=== PATIENT | male | born 1935 | race Caucasian/White ===

== ENCOUNTER 2017-06-06 14:08 | Emergency (ER) | payer MEDICARE, SELFPAY ==
[2017-06-06 14:19] VITALS: BP 140/90; PULSE 72; RESP 18; TEMP 38.1; O2SAT 96; BMI 27.8
[2017-06-06 14:52] LABS: UTC Influenza A Antigen Positive (Negative); UTC Influenza B Antigen Negative (Negative)
--- NOTE | 2017-06-06 15:13 | HMH.EDUTC ---
[facility] [place] Disposition Clinical Impression: Influenza A Disposition: Home, Self-Care Condition on Discharge: Good Instructions: DI for Influenza -- Adult Additional Instructions: * Start Tamiflu today if you are going to take it. Discussed risks and possible benefits. * Lots of rest * Increase fluids, water, gatorade, powerade, pedialyte if /toddler/child * Monitor Temp. Tylenol every 4 hours as needed no more then 5 times a day or 4000mg in 24 hours and/or ibuprofen every 6 hours as needed no more then 3200mg in 24 hours (as long as your primary care doctor has told you that it is ok to take both) for fever/aches/pain. ER if fever no less than 101 despite tylenol and Ibuprofen * You (or your child) are contagious until no fever, aches, chills x 24 hours without medication for symptoms. Prescriptions: Oseltamivir Phosphate [Tamiflu 75mg Capsule] 75 mg PO BID #10 capsule Referrals: Arnulfo Helms MD [Primary Care Provider] - Time of Disposition: 15:22 Medical Decision Making Vital Signs: 06/06/17 14:19 Temperature 100.6 F H Temperature Source Temporal Artery Scan Pulse Rate [Right] 72 Respiratory Rate 18 Blood Pressure [Right Arm] 140/90 Blood Pressure Mean [Right Arm] 106 Blood Pressure Source [Right Arm] Automatic Cuff Blood Pressure Position [Right Arm] Sitting 02 Sat by Pulse Oximetry 96 Oxygen Delivery Method Room Air - Lab Data Lab results reviewed: Yes: I reviewed the patient's lab results. Lab Results 06/06/17 14:46: Influenza Type A Ag Positive A, Influenza Type B Ag Negative - Shai Inquiry Pt receiving controlled substance: No [facility] [place] HPI - General Stated complaint: aches cough Time Seen by Provider: 06/06/17 14:55 Mode of Arrival: Ambulatory Source of Information: Patient Limitations: No Limitations Description of Symptoms (Recalled from Triage Doc. by RN): COUGH, CONGESTION, ACHES HEENT Symptoms (Recalled from RN notes): Yes Resp Symptoms (Recalled from RN notes): No Skin Symptoms (Recalled from RN notes): No MS Symptoms (Recalled from RN notes): No Functional Status (Recalled from RN notes): N - History of Present Illness Provider Complaint: c/o bodyaches, chills, cough. Pt thinks cough 2-3 days but reports he was just fine and himself yesterday and suddenly didn't feel good today. Has had flu vaccine. No known sick contacts. Hx of COPD. Cough worse. Occasional SOA. Hx of pneumonia but and pt doesn't feel that this is pneumonia and declined a CXR. - Related Data Home Medications Medication Instructions Recorded Confirmed Aspirin [Aspirin 81mg chewable 81 mg PO DAILY 06/06/17 06/06/17 tab] Carvedilol [Carvedilol 25mg Tab] 25 mg PO DAILY 06/06/17 06/06/17 Furosemide [Lasix 40mg tab] 40 mg PO DAILY 06/06/17 06/06/17 Metformin HCl 1,000 mg PO BID 06/06/17 06/06/17 Warfarin Sodium 2.5 mg PO DAILY 06/06/17 06/06/17 glipiZIDE [Glipizide] 10 mg PO BID 06/06/17 06/06/17 Previous Rx's Medication Instructions Recorded Oseltamivir Phosphate [Tamiflu 75 mg PO BID #10 cap 06/06/17 75mg Capsule] Allergies Allergy/AdvReac Type Severity Reaction Status Date / Time No Known Allergies Allergy Verified 06/06/17 14:25 - Worker's Comp Is this a Worker's Comp case?: No H History I have reviewed the patient's past medical history: Yes Medical History: Reports:: Chronic Obstructive Pulmonary Disease (COPD), Coronary Artery Disease, Diabetes Mellitus Type 2, Hyperlipidemia, Hypertension, Myocardial Infarction Other Surgeries: Yes: Splenectomy, Other (CABGx3, neck surg) - *Social History Alcohol Intake: never - Psychiatric History Expresses thoughts of harming self/others: None Suicide Plan Description: No Plan ROS Obtained: Yes Systems reviewed as appropriate & no additional complaints - Constitutional Constitutional: Reports as per HPI, Reports anorexia (still eating but less, good liquid intake), Reports fatigue, Denies weakness
--- NOTE | 2017-06-06 15:16 | ED_ITS ---
[facility] [place] Disposition Clinical Impression: Influenza A Disposition: Home, Self-Care Condition on Discharge: Good Instructions: DI for Influenza -- Adult Additional Instructions: * Start Tamiflu today if you are going to take it. Discussed risks and possible benefits. * Lots of rest * Increase fluids, water, gatorade, powerade, pedialyte if /toddler/child * Monitor Temp. Tylenol every 4 hours as needed no more then 5 times a day or 4000mg in 24 hours and/or ibuprofen every 6 hours as needed no more then 3200mg in 24 hours (as long as your primary care doctor has told you that it is ok to take both) for fever/aches/pain. ER if fever no less than 101 despite tylenol and Ibuprofen * You (or your child) are contagious until no fever, aches, chills x 24 hours without medication for symptoms. Prescriptions: Oseltamivir Phosphate [Tamiflu 75mg Capsule] 75 mg PO BID #10 capsule Referrals: Arnulfo Helms MD [Primary Care Provider] - Time of Disposition: 15:22 Medical Decision Making Vital Signs: 06/06/17 14:19 Temperature 100.6 F H Temperature Source Temporal Artery Scan Pulse Rate [Right] 72 Respiratory Rate 18 Blood Pressure [Right Arm] 140/90 Blood Pressure Mean [Right Arm] 106 Blood Pressure Source [Right Arm] Automatic Cuff Blood Pressure Position [Right Arm] Sitting 02 Sat by Pulse Oximetry 96 Oxygen Delivery Method Room Air - Lab Data Lab results reviewed: Yes: I reviewed the patient's lab results. Lab Results 06/06/17 14:46: Influenza Type A Ag Positive A, Influenza Type B Ag Negative - Shai Inquiry Pt receiving controlled substance: No [facility] [place] HPI - General Stated complaint: aches cough Time Seen by Provider: 06/06/17 14:55 Mode of Arrival: Ambulatory Source of Information: Patient Limitations: No Limitations Description of Symptoms (Recalled from Triage Doc. by RN): COUGH, CONGESTION, ACHES HEENT Symptoms (Recalled from RN notes): Yes Resp Symptoms (Recalled from RN notes): No Skin Symptoms (Recalled from RN notes): No MS Symptoms (Recalled from RN notes): No Functional Status (Recalled from RN notes): N - History of Present Illness Provider Complaint: c/o bodyaches, chills, cough. Pt thinks cough 2-3 days but reports he was just fine and himself yesterday and suddenly didn't feel good today. Has had flu vaccine. No known sick contacts. Hx of COPD. Cough worse. Occasional SOA. Hx of pneumonia but and pt doesn't feel that this is pneumonia and declined a CXR. - Related Data Home Medications Medication Instructions Recorded Confirmed Aspirin [Aspirin 81mg chewable 81 mg PO DAILY 06/06/17 06/06/17 tab] Carvedilol [Carvedilol 25mg Tab] 25 mg PO DAILY 06/06/17 06/06/17 Furosemide [Lasix 40mg tab] 40 mg PO DAILY 06/06/17 06/06/17 Metformin HCl 1,000 mg PO BID 06/06/17 06/06/17 Warfarin Sodium 2.5 mg PO DAILY 06/06/17 06/06/17 glipiZIDE [Glipizide] 10 mg PO BID 06/06/17 06/06/17 Previous Rx's Medication Instructions Recorded Oseltamivir Phosphate [Tamiflu 75 mg PO BID #10 cap 06/06/17 75mg Capsule] Allergies Allergy/AdvReac Type Severity Reaction Status Date / Time No Known Allergies Allergy Verified 06/06/17 14:25 - Worker's Comp Is this a Worker's Comp case?: No [facility] History I have review
== END 2017-06-06 15:34 | disposition home or self-care (01) ==
PROVIDERS: Emergency Provider Nurse Practitioner Family; Family Provider Family Medicine; PCP Family Medicine
DX: J09.X2 Influenza due to identified novel influenza A virus with other respiratory manifestations (principal); J44.9 Chronic obstructive pulmonary disease, unspecified; I25.10 Atherosclerotic heart disease of native coronary artery without angina pectoris; E11.9 Type 2 diabetes mellitus without complications; I10 Essential (primary) hypertension; I25.2 Old myocardial infarction; Z95.1 Presence of aortocoronary bypass graft; Z79.01 Long term (current) use of anticoagulants; Z79.84 Long term (current) use of oral hypoglycemic drugs; Z79.82 Long term (current) use of aspirin; Z79.899 Other long term (current) drug therapy
CPT/HCPCS: 87804; 99202

== ENCOUNTER 2018-10-03 22:40 | Inpatient (IN) ==
--- NOTE | 2018-10-03 22:51 | Emergency Department Note ---
ED Disposition Clinical Impression: Acute respiratory failure with hypoxia, COPD exacerbation Congestive heart failure Qualifiers: Heart failure type: unspecified Heart failure chronicity: acute Qualified Code(s): I50.9 - Heart failure, unspecified Disposition: Admitted As Inpatient Condition on Discharge: Fair Referrals: Arnulfo Helms MD [Primary Care Provider] - - Critical Care Critical Care Time: Yes Attestation: On , the high probability of a clinically significant, sudden or life threateni ng deterioration of the following system(s) required my full and direct attention, intervention and personal management. The time I documented below is in addition to time spent performing reported procedures but includes the following listed in this critical care notation. Total Critical Care Time: 35 Vital system(s) involved:: Respiratory Failure My critical care processes included: Assessment & monitoring of V/S, Initial and Re-exams, Data Review/Interpretation, Coordinating Care, Medication Orders and management, Documentation Medical Decision Making - Shai Inquiry Pt receiving controlled substance: No Vital Signs: 10/03/18 22:52 10/03/18 23:00 10/03/18 23:38 Temperature 98.1 F Temperature Source Oral Pulse Rate 81 Pulse Rate [Right Radial] 91 H Respiratory Rate 34 H Blood Pressure [Right Arm] 180/119 H Blood Pressure Mean [Right Arm] 139 02 Sat by Pulse Oximetry 80 L 80 L Oxygen Delivery Method Room Air Nasal Cannula Oxygen Flow Rate (LPM) 2 - Lab Data Lab Results 10/03/18 22:57: Specimen Source R/r, O2 % 2, ABG pH 7.40, ABG pCO2 34.6 L, ABG pO2 52.1 L, ABG HCO3 20.7 L, ABG Total CO2 21.8 L, ABG O2 Saturation 86 L*, ABG Base Excess -4.2 L, Darrell Test Y 10/03/18 23:05: WBC 13.1 H, RBC 5.29, Hgb 15.1, Hct 46.4, MCV 87.8, MCH 28.5, MCHC 32.4, RDW 13.9, Plt Count 278, MPV 9.5, Neut % (Auto) 84.7 H, Lymph % (Auto) 6.7 L, [place] % (Auto) 4.5, Eos % (Auto) 3.7, Baso % (Auto) 0.3, Neut # (Auto) 11.1 H, Lymph # (Auto) 0.9, [place] # (Auto) 0.6, Eos # (Auto) 0.5 H, Baso # (Auto) 0.0 10/03/18 23:05: Sodium 142, Potassium 3.8, Chloride 103, Carbon Dioxide 29, Anion Gap 13.8, BUN 21 H, Creatinine 1.41 H, Estimated Creat Clear 49, Estimated GFR 48 L, Est GFR ( Amer) 58 L, Glucose 286 H, Calcium 8.8, Total Bilirubin 1.2 H, AST 23, ALT 29, Alkaline Phosphatase 62, Troponin I 0.02, Total Protein 7.2, Albumin 3.9, Globulin 3.3 H, Albumin/Globulin Ratio 1.2 10/03/18 23:05: B-Natriuretic Peptide 305 H 10/03/18 23:05: PT 22.1 H, INR 2.21 H 10/03/18 23:20: Lactate 1.8 Result diagrams: 10/03/18 23:05 10/03/18 23:05 Orders (Tests/Meds): ED MEDICATIONS Generic Name Dose Route Start Last Admin Trade Name Freq PRN Reason Stop Dose Admin Azithromycin 500 mg/ Sodium 250 mls @ 250 mls/hr 10/03/18 23:45 10/03/18 23:59 Chloride IV 10/17/18 23:44 250 mls/hr Q24H SHANA Administration Protocol Sodium Chloride 3 ml 10/03/18 23:13 Sodium Chloride 3% 15ml [facility] 11/02/18 23:12 ONCE PRN INDUCE SPUTUM COLLECTION Discontinued Medications Generic Name Dose Route Start Last Admin Trade Name Freq PRN Reason Stop Dose Admin Albuterol/Ipratropium 3 ml 10/03/18 23:23 10/03/18 23:37 Duoneb 3ml [facility] 10/03/18 23:24 3 ml ONCE ONE Administration Furosemide 80 mg 10/03/18 23:12 10/03/18 23:23 Lasix 40mg/4ml Vial IV 10/03/18 23:13 80 mg ONCE ONE Administration Methylprednisolone Sodium Succinate 125 mg 10/03/18 23:12 10/03/18 23:23 Solu-Medrol 125mg/2ml Vial IV 10/03/18 23:13 125 mg ONCE ONE Administration ORDERS Category Date Time Status XR chest portable Stat Exams 10/03/18 22:57 Taken Blood Culture Stat Micro 10/03/18 23:24 Received Sputum Culture & Gram Stain Stat Micro 10/03/18 23:13 Ordered ABG [Arterial Blood Gas] Stat RT 10/03/18 22:47 Ordered - Radiology Data #1 Image(s): Chest Image Reviewed: Yes I reviewed the patient's radiology image Increased interstitial markings. - ECG Data Tracing #1 EKG interpreted by Merritt Lucia MD: Rhythm: Atrial fibrillation Rate: 93 [place]: normal Ectopy: none Conduction: normal ST Segment Changes: none T Wave Changes: none Q Waves: none Poor R wave progression baseline artifact and wander present, but I consider the EKG adequate for accurate interpretation. - Physician Consults Physician Consulted: Cristofer Helms Time: 00:31 Reason -: Admission Comment/Response: Agrees to admit the patient to the hospital. We discussed the patient's clinical information, including history, exam, laboratory and radi ology results and ED course. Per hospital procedure, I will write temporary bridge inpatient orders on the patient. Specific orders requested by the admitting physician: Intravenous Lasix twice daily, recheck labs in the morning - Reevaluation(s) Time: 00:25 Reevaluation #1: Improved, laying almost supine and appears comfortable. General Adult HPI - General Stated complaint: SOA Time Seen by Provider: 10/03/18 23:08 - History of Present Illness HPI narrative: Shortness of breath that started a couple of hours ago. Associated with gurgling respirations. Slight anterior chest pain. Cough with small amounts of yellow sputum. No fever. Chronic rhinorrhea, no acute change. No leg swelling. Patient believes that this is his COPD. He thinks he has a nebulizer at home, uncertain of medications used via nebulizer. Says he only uses it as needed, not every day. Former smoker. He is not on oxygen at home. - Related Data Home Medications Medication Instructions Recorded Confirmed Aspirin [Aspirin 81mg chewable 81 mg PO DAILY 06/06/17 10/03/18 tab] Carvedilol [Carvedilol 25mg Tab] 25 mg PO DAILY 06/06/17 10/03/18 Furosemide [Lasix 40mg tab] 40 mg PO DAILY 06/06/17 10/03/18 Metformin HCl 1,000 mg PO BID 06/06/17 10/03/18 Warfarin Sodium 2.5 mg PO DAILY 06/06/17 10/03/18 glipiZIDE [Glipizide] 10 mg PO BID 06/06/17 10/03/18 Benazepril HCl 40 mg PO DAILY 10/03/18 10/03/18 Doxazosin Mesylate [Doxazosin 8mg 8 mg PO HS 10/03/18 10/03/18 Tab] Fluocinonide/Emollient Base 15 gm TP BID 10/03/18 10/03/18 [Fluocinonide-E 0.05% Cream] Multivitamin [Daily Multiple 1 each PO DAILY 10/03/18 10/03/18 Vitamin] Potassium Chloride [K-Tab ER 10 10 meq PO DAILY 10/03/18 10/03/18 mEq] Pravastatin Sodium [Pravachol 40mg 40 mg PO HS 10/03/18 10/03/18 Tablet] Allergies Allergy/AdvReac Type Severity Reaction Status Date / Time No Known Allergies Allergy Verified 10/03/18 22:57 [facility] History - Hepatitis A Screen Attestation statement:: This patient has been screened for Hepatitis A risk factors. I have reviewed the patient's past medical history: Yes Medical History: Reports:: Chronic Obstructive Pulmonary Disease (COPD), Coronary Artery Disease, Diabetes Mellitus Type 2, Hyperlipidemia, Hypertension, Myocardial Infarction Other Surgeries: Yes: Splenectomy, Other (CABGx3, neck surg) - Social History Alcohol Intake: never ROS Obtained: Yes All systems reviewed & no additional complaints - Constitutional Constitutional: Denies fever(s) - ENT Ears, Nose, Mouth, and Throat: Reports nasal discharge - Cardiovascular Cardiovascular: Reports chest pain, Denies leg edema - Respiratory Respiratory: Yes cough, Yes dyspnea - Gastrointestinal Gastrointestingal: Denies: vomiting Physical Exam - General General appearance: alert, in distress (Respiratory) - Head Head exam: atraumatic, normocephalic - Eye Eye exam: Present: normal appearance, EOMI - ENT ENT exam: Present: mucous membranes moist - Neck Neck exam: Present: normal inspection, trachea midline - Chest Chest inspection: Present: symmetric chest wall rise - Respiratory Respiratory exam: Present: accessory muscle use, other (Rattling, rales) - Cardiovascular Cardiovascular exam: Present: regular rate, irregular rhythm, normal heart sounds - Abdominal Exam Abdominal exam: Present: soft. Absent: distention, tenderness - Extremities Exam Extremities exam: Present: normal inspection. Absent: tenderness, pedal edema, calf tenderness - Neurological Exam Neurological exam: Present: alert, oriented X3 - Psychiatric Psychiatric exam: Present: normal affect, normal mood - Skin Skin exam: Present: warm, dry
[2018-10-03 22:58] LABS: ABG Base Excess -4.2 mmol/L (-2.4-2.3); ABG HCO3 20.7 mmhg (22.0-26.0); ABG Oxygen Saturation 86 % (90-100); ABG PCO2 34.6 mmhg (35.0-45.0); ABG PO2 52.1 mmhg (80-100); ABG TCO2 21.8 mmhg (23-27); Allen's Test Y; Oxygen 2 %
[2018-10-03 23:16] LABS: Basophils % 0.3 % (0.1-2.0); Eosinophils # 0.5 K/mm3 (0.0-0.4); Eosinophils % 3.7 % (0.1-12.0); Hematocrit 46.4 % (42.0-52.0); Hemoglobin 15.1 g/dL (14.1-18.0); Lymphocytes # 0.9 K/mm3 (0.7-4.5); Lymphocytes % 6.7 % (10-50); Mean Corpuscular HGB Conc 32.4 g/dL (31.8-35.4); Mean Corpuscular Hemoglobin 28.5 pg (27.0-31.2); Mean Corpuscular Volume 87.8 fl (80-94); Mean Platelet Volume 9.5 fl (7.4-10.4); Monocytes # 0.6 K/mm3 (0.1-1.0); Monocytes % 4.5 % (1.7-9.3); Neutrophils # 11.1 K/mm3 (1.8-7.8); Neutrophils % 84.7 % (37.0-80.0); Platelet Count 278 K/mm3 (142-424); Red Blood Count 5.29 M/mm3 (4.60-6.20); Red Cell Distribution Width 13.9 % (11.5-17.5); White Blood Count 13.1 K/mm3 (4.8-10.8)
[2018-10-03 23:24] LABS: INR 2.21 (0.9-1.1); Prothrombin Time 22.1 seconds (9.4-11.8)
[2018-10-03 23:30] LABS: Albumin Level 3.9 gm/dL (3.4-5.0); Albumin/Globulin Ratio 1.2 (1.1-1.8); Anion Gap 13.8 mEq/L (5-15); Bilirubin,Total 1.2 mg/dL (0.2-1.0); Calcium 8.8 mg/dL (8.5-10.1); Globulin 3.3 gm/dl (1.3-3.2); Potassium 3.8 mmoL/L (3.5-5.1); Total Protein,Serum 7.2 gm/dL (6.4-8.2)
[2018-10-04 07:02] LABS: Anion Gap 17.4 mEq/L (5-15); Calcium 8.3 mg/dL (8.5-10.1); Potassium 3.4 mmoL/L (3.5-5.1)
--- NOTE | 2018-10-04 08:13 | History & Physical Report ---
*Admission Date: 10/04/18 *Chief complaint: Severe dyspnea with hypoxia *History of present illness: 83-year-old white male with history of emphysema and congestive heart failure, follows with [facility] cardiology group in [place], who came to the emergency department with progressive shortness of air through the early evening hours on the day of admission, 10/03/2018. He denies missing medications or changes in his low-salt diet, but when he came to the emergency department was significantly fluid overloaded with dyspnea, hypoxia and mild respiratory acidosis. He felt it was from COPD, but elevated BNP levels and crackles on exam prompted treatment for CHF exacerbation with IV Lasix which improved his situation. Although he improved slightly he continued to require 4 L of nasal cannula oxygen flow to keep his oxygen saturations above 90%, and he was admitted for further observation, IV Lasix and diagnostic testing. [facility] History I have reviewed the patient's past medical history: Yes Medical History: Reports:: Chronic Obstructive Pulmonary Disease (COPD), Coronary Artery Disease, Diabetes Mellitus Type 2, Hyperlipidemia, Hypertension, Myocardial Infarction Denies:: Cancer, MRSA *Have you ever received a pneumonia vaccine?: Yes *Have you received a flu vaccine this season?: Yes Laterality Cases: Bilateral: Tonsillectomy Other Surgeries: Yes: Appendectomy, CABG, Cardiac Catheterization, Cardiac Surgery, Splenectomy, Other (CABGx3, neck surg) Amputation: No Fractures: Yes (HX OF BROKEN R ARM.) - *Social History Educational Level: Completed High School Smoking Status: Former smoker Tobacco Type: cigarettes # Packs/Day (cigarettes): 3 Alcohol Intake: never *Occupational Status:: retired *Travel in the last 8 weeks: None - Psychiatric History Expresses thoughts of harming self/others: None Suicide Plan Description: No Plan Family Hx:: Coronary Artery Disease, Diabetes, Heart Attack, Hyperlipidemia, Hypertension Review of Systems - Review of Systems Review of systems:: pertinent systems reviewed and negative unless documented below Cardiac: Positive for shortness of air, negative for chest pain or palpitations Respiratory: Positive for shortness of air with exertion. Positive for cough, negative for sputum production. GI: Negative : Negative Neurologic: Negative. Skin: Negative. Meds Home Medications Medication Instructions Recorded Confirmed Type Aspirin [Aspirin 81mg chewable 81 mg PO DAILY 06/06/17 10/03/18 History tab] Carvedilol [Carvedilol 25mg Tab] 25 mg PO DAILY 06/06/17 10/03/18 History Furosemide [Lasix 40mg tab] 40 mg PO DAILY 06/06/17 10/03/18 History Metformin HCl 1,000 mg PO BID 06/06/17 10/03/18 History Warfarin Sodium 2.5 mg PO DAILY 06/06/17 10/03/18 History glipiZIDE [Glipizide] 10 mg PO BID 06/06/17 10/03/18 History Benazepril HCl 40 mg PO DAILY 10/03/18 10/03/18 History Doxazosin Mesylate [Doxazosin 8mg 8 mg PO HS 10/03/18 10/03/18 History Tab] Fluocinonide/Emollient Base 15 gm TP BID 10/03/18 10/03/18 History [Fluocinonide-E 0.05% Cream] Multivitamin [Daily Multiple 1 each PO DAILY 10/03/18 10/03/18 History Vitamin] Potassium Chloride [K-Tab ER 10 10 meq PO DAILY 10/03/18 10/03/18 History mEq] Pravastatin Sodium [Pravachol 40mg 40 mg PO HS 10/03/18 10/03/18 History Tablet] Allergies Allergy/AdvReac Type Severity Reaction Status Date / Time No Known Allergies Allergy Verified 10/03/18 22:57 Exam Vital signs and Labs for Last 24 Hours: Temp Pulse Resp BP Pulse Ox 98.5 F 82 20 114/70 98 10/04/18 07:38 10/04/18 07:38 10/04/18 07:38 10/04/18 07:38 10/04/18 07:38 Laboratory Results - last 24 hr 10/03/18 22:57: Specimen Source R/r, O2 % 2, ABG pH 7.40, ABG pCO2 34.6 L, ABG p O2 52.1 L, ABG HCO3 20.7 L, ABG Total CO2 21.8 L, ABG O2 Saturation 86 L*, ABG Base Excess -4.2 L, Darrell Test Y 10/03/18 23:05: WBC 13.1 H, RBC 5.29, Hgb 15.1, Hct 46.4, MCV 87.8, MCH 28.5, MCHC 32.4, RDW 13.9, Plt Count 278, MPV 9.5, Neut % (Auto) 84.7 H, Lymph % (Auto) 6.7 L, [place] % (Auto) 4.5, Eos % (Auto) 3.7, Baso % (Auto) 0.3, Neut # (Auto) 11.1 H, Lymph # (Auto) 0.9, [place] # (Auto) 0.6, Eos # (Auto) 0.5 H, Baso # (Auto) 0.0 10/03/18 23:05: Sodium 142, Potassium 3.8, Chloride 103, Carbon Dioxide 29, Anion Gap 13.8, BUN 21 H, Creatinine 1.41 H, Estimated Creat Clear 49, Estimated GFR 48 L, Est GFR ( Amer) 58 L, Glucose 286 H, Calcium 8.8, Total Bilirubin 1.2 H, AST 23, ALT 29, Alkaline Phosphatase 62, Troponin I 0.02, Total Protein 7.2, Albumin 3.9, Globulin 3.3 H, Albumin/Globulin Ratio 1.2 10/03/18 23:05: B-Natriuretic Peptide 305 H 10/03/18 23:05: PT 22.1 H, INR 2.21 H 10/03/18 23:20: Lactate 1.8 10/04/18 03:00: Troponin I 0.10 H 10/04/18 06:19: Sodium 139, Potassium 3.4 L, Chloride 103, Carbon Dioxide 22 D, Anion Gap 17.4 H, BUN 22 H, Creatinine 1.43 H, Estimated Creat Clear 45, Estimated GFR 47 L, Est GFR ( Amer) 57 L, Glucose 361 H D, Calcium 8.3 L, Troponin I 0.13 H I & O for Last 24 hours: Intake & Output 10/01/18 10/02/18 10/03/18 10/04/18 11:59 11:59 11:59 11:59 Intake Total 730 / 730 Output Total 1595 / 1595 Balance -865 / -865 Weight 178 lb Microbiology Reports for the Last 24 Hours: Microbiology 10/04/18 06:21 Sputum - Expectorated Sputum Gram Stain - Final Narrative: Patient is pleasant, talkative, alert and oriented x3. States that he feels better than his presentation to the ER. Ate 100% of his breakfast. ENT exam clear. No JVD. Wearing 4 L nasal cannula oxygen. Lungs have crackles in both lung okee[place], slightly more on the right this morning, no wheezing. Heart rate irregular consistent with his prior diagnosis of atrial fibrillation. Trace ankle edema at the sock line. Otherwise no pitting. Abdomen soft and nontender. Neurologic exam intact. Assessment and Plan (1) Atrial fibrillation, chronic Current visit: Yes Status: Acute Category: Medical Code(s): I48.2 - Chronic atrial fibrillation Therapeutic with Coumadin. Continue close observation. Rate controlled. (2) Elevated troponin Current visit: Yes Status: Acute Category: Medical Code(s): R74.8 - Abnormal levels of other serum enzymes Initial troponin normal. Possibly elevated because of CHF strain. Check echocardiogram tomorrow morning. (3) Acute respiratory failure with hypoxia Current visit: Yes Status: Acute Category: Medical Code(s): J96.01 - Acute respiratory failure with hypoxia Improving. Continue IV Lasix and attempt to wean oxygen. (4) COPD exacerbation Current visit: Yes Status: Acute Category: Medical Code(s): J44.1 - Chronic obstructive pulmonary disease with (acute) exacerbation Does not seem to be the major component of his dyspnea. I will stop steroids given lack of wheezing. (5) Congestive heart failure Current visit: Yes Status: Acute Qualifiers: Heart failure type: unspecified Heart failure chronicity: acute Qualified Code(s): I50.9 - Heart failure, unspecified Category: Medical Code(s): I50.9 - Heart failure, unspecified Exacerbation improving with IV Lasix. Continue this, monitor labs carefully. Echocardiogram tomorrow morning. (6) Chronic renal insufficiency, stage II (mild) Current visit: Yes Status: Acute Category: Medical Code(s): N18.2 - Chronic kidney disease, stage 2 (mild) Creatinine elevation seems to be baseline, unchanged overnight, follow again tomorrow morning.
--- NOTE | 2018-10-04 11:53 | Pharmacy Consult Notes ---
[facility] Pharmacy VTE Monitoring - Patient Demographics Admission date: 10/04/18 Report Date: 10/04/18 Time: 11:53 Allergies/Adverse Reactions: Patient Allergies No Known Allergies Allergy (Verified 10/03/18 22:57) Height: 1.8 m Weight: 80.739 kg Patient Problems: Current Active Problems (Updated 10/04/18 @ 08:15 by Arnulfo Cleveland MD) Acute respiratory failure with hypoxia (Acute) COPD exacerbation (Acute) Congestive heart failure (Acute) Atrial fibrillation, chronic (Acute) Elevated troponin (Acute) Chronic renal insufficiency, stage II (mild) (Acute) - VTE Risk Labs: VTE Related Lab Results Hgb 15.1 g/dL (14.1-18.0) 10/03/18 23:05 Hct 46.4 % (42.0-52.0) 10/03/18 23:05 Plt Count 278 K/mm3 (142-424) 10/03/18 23:05 PT 22.1 seconds (9.4-11.8) H 10/03/18 23:05 INR 2.21 (0.9-1.1) H 10/03/18 23:05 BUN 22 mg/dL (7-18) H 10/04/18 06:19 Creatinine 1.43 mg/dL (0.70-1.30) H 10/04/18 06:19 Estimated Creat Clear 45 mL/min (50-200) 10/04/18 06:19 VTE Score: 5 VTE Risk Level: Low Risk - Prophylaxis VTE Prophylaxis Ordered?: Yes Types of VTE Prophylaxis: TEDS Knee High, Pharmacological Location of Applied Device: Bilateral Lower Extremeties Pharmacologic Type: Warfarin (INR=2.21)
[2018-10-05 06:43] LABS: Basophils % 0.1 % (0.1-2.0); Hematocrit 34.4 % (42.0-52.0); Hemoglobin 11.2 g/dL (14.1-18.0); Lymphocytes # 0.9 K/mm3 (0.7-4.5); Lymphocytes % 4.9 % (10-50); Mean Corpuscular HGB Conc 32.6 g/dL (31.8-35.4); Mean Corpuscular Hemoglobin 28.5 pg (27.0-31.2); Mean Corpuscular Volume 87.5 fl (80-94); Mean Platelet Volume 9.7 fl (7.4-10.4); Monocytes # 0.6 K/mm3 (0.1-1.0); Monocytes % 3.6 % (1.7-9.3); Neutrophils % 91.3 % (37.0-80.0); Platelet Count 206 K/mm3 (142-424); Red Blood Count 3.93 M/mm3 (4.60-6.20); Red Cell Distribution Width 14.2 % (11.5-17.5); White Blood Count 17.6 K/mm3 (4.8-10.8)
[2018-10-05 06:51] LABS: Anion Gap 13.9 mEq/L (5-15); Calcium 8.3 mg/dL (8.5-10.1)
[2018-10-05 07:20] LABS: Potassium 2.9 mmoL/L (3.5-5.1)
--- NOTE | 2018-10-05 07:35 | Progress Note ---
Internal Medicine - PN: Subj *Date: 10/05/18 *Time: 07:33 Interval history: Patient is awake and alert sitting up on the side of the bed this morning and denies any complaints and feels like he is back to his baseline. Nasal cannula is still in use. He has been weaned from 4 L/min down to 2 L/min of supplemental oxygen. He denies cough. Exam Vital signs and Labs for Last 24 Hours: Temp Pulse Resp BP Pulse Ox 98.5 F 82 18 121/61 94 L 10/05/18 04:00 10/05/18 05:54 10/05/18 04:00 10/05/18 04:00 10/05/18 05:54 Laboratory Results - last 24 hr 10/04/18 06:06: POC Glucose 342 H* 10/04/18 10:28: POC Glucose 477 H* 10/04/18 17:05: POC Glucose 328 H* 10/04/18 20:22: POC Glucose 314 H* 10/05/18 05:19: POC Glucose 261 H 10/05/18 06:09: WBC 17.6 H D, RBC 3.93 L D, Hgb 11.2 L, Hct 34.4 L, MCV 87.5, MCH 28.5, MCHC 32.6, RDW 14.2, Plt Count 206 D, MPV 9.7, Neut % (Auto) 91.3 H, Lymph % (Auto) 4.9 L, [place] % (Auto) 3.6, Eos % (Auto) 0.0 L, Baso % (Auto) 0.1, Neut # (Auto) 16.0 H, Lymph # (Auto) 0.9, [place] # (Auto) 0.6, Eos # (Auto) 0.0, Baso # (Auto) 0.0 10/05/18 06:09: Sodium 143, Potassium 2.9 L*, Chloride 106, Carbon Dioxide 26, Anion Gap 13.9, BUN 32 H D, Creatinine 1.55 H, Estimated Creat Clear 42, Estimated GFR 43 L, Est GFR ( Amer) 52 L, Glucose 249 H D, Calcium 8.3 L I & O for Last 24 hours: Intake & Output 10/02/18 10/03/18 10/04/18 10/05/18 11:59 11:59 11:59 11:59 Intake Total 730 / 730 730 / 730 Output Total 1945 / 1945 700 / 700 Balance -1215 / -1215 30 / 30 Weight 178 lb 179 lb 5 oz Microbiology Reports for the Last 24 Hours: Microbiology 10/04/18 06:21 Sputum - Expectorated Sputum Gram Stain - Final 10/04/18 06:21 Sputum - Expectorated Sputum Sputum Culture - Preliminary Narrative: He appears well. Lung exam reveals persistent crackles in the left lung base but not in the right. Heart has a irregularly irregular rate and rhythm. Extremities are without edema Assessment and Plan (1) Acute respiratory failure with hypoxia Current visit: Yes Status: Acute Category: Medical Code(s): J96.01 - Acute respiratory failure with hypoxia (2) Atrial fibrillation, chronic Current visit: Yes Status: Acute Category: Medical Code(s): I48.2 - Ch ronic atrial fibrillation (3) Elevated troponin Current visit: Yes Status: Acute Category: Medical Code(s): R74.8 - Abnormal levels of other serum enzymes (4) COPD exacerbation Current visit: Yes Status: Acute Category: Medical Code(s): J44.1 - Chronic obstructive pulmonary disease with (acute) exacerbation (5) Congestive heart failure Current visit: Yes Status: Acute Qualifiers: Heart failure type: unspecified Heart failure chronicity: acute Qualified Code(s): I50.9 - Heart failure, unspecified Category: Medical Code(s): I50.9 - Heart failure, unspecified (6) Chronic renal insufficiency, stage II (mild) Current visit: Yes Status: Acute Category: Medical Code(s): N18.2 - Chronic kidney disease, stage 2 (mild) - Assessment and plan all Dx Assessment and Plan for all problems:: Echocardiogram was performed this morning but I do not have the results of that yet. Potassium is decreased and patient will be given 40 mEq of potassium chloride this morning and reduce his Lasix dose to once daily. Oxygen has been removed this morning and a room air sat will be checked shortly. If patient is able to maintain O2 sats in the 90s on room air during the day could be dis charged this evening
[2018-10-05 08:13] LABS: Lymphocytes % 2 % (10-50); Monocytes % 7 % (2-9); Neutrophils % 58 % (42-76); Total Cells Counted 100
--- NOTE | 2018-10-05 19:01 | Cardiology Report ---
PROCEDURE: 2-D M-mode and color Doppler study INDICATIONS FOR THE TEST: Chest pain COPD+ Heart Murmur Tobacco SmokingEX Palpitations Fatigue Syncope Edema Hypertension+Diabetes Mellitus+ Rheumatic Fever SOB+CARMICHAEL Obesity Hyperlipidemia+ Family History HD Additional History CHF, CAD, [place] X 2, CABG, CHRONIC AF, STENTS PATIENT INFORMATION HEIGHT: 71 WEIGHT:178 GENDER: Male B/P:114/70 2-D/M-MODE INTERPRETATION: 2-D MEASUREMENTS OBSERVED VALUES IN CMS Right Ventricular Dimension (RVDd) 3.2 Interventricular Septum (Thickness)(IVsd) 1.5 Left Ventricular Internal Dimensions(LVIDd) 6.2 Left Ventricular Posterior Wall (Thickness)(LVPWd) 1.0 Aortic Root 3.2 Aortic Cusp Separation 1.9 Left Atrial Dimensions (LAD) 6.2 2D 1. Left atrium is moderately enlarged, left ventricle is mildly dilated, mild concentric left ventricular hypertrophy, visually estimated ejection fraction 40%, there is marked hypokinesis involving the inferior, inferior basal, and inferolateral wall. 2. The right atrium and right ventricle are mildly enlarged with normal contractility. 3. The aortic valve is thickened and calcified leaflet continue to display good mobility. 4. The mitral and tricuspid valve leaflets are minimally thickened. 5. The pulmonic valve is poorly visualized. 6. No significant pericardial effusion noted. DOPPLER INTERROGATION: Doppler interrogation of the aortic, mitral and tricuspid valvular presence of mild aortic, moderate mitral and mild tricuspid regurgitation, tricuspid regurgitation jet velocity is inadequate for calculation of the right ventricular systolic pressure, diastolic parameters are inconclusive. Inferior vena cava is not well visualized. CONCLUSION: 1. Biatrial enlargement, dilated left ventricle, mild concentric left ventricular hypertrophy, visually estimated ejection fraction 40% with multiple segmental wall motion abnormality described above, diastolic parameters are inconclusive. 2. Mild aortic, moderate mitral and mild tricuspid regurgitation 3. No significant pericardial effusion noted.
--- NOTE | 2018-10-06 07:15 | Discharge Summary ---
General - General Admission date:: 10/04/18 Discharge date: 10/06/18 HPI HPI: 83-year-old white male with history of emphysema and congestive heart failure, follows with [facility] cardiology group in [place], who came to the emergency department with progressive shortness of air through the early evening hours on the day of admission, 10/03/2018. He denies missing medications or changes in his low-salt diet, but when he came to the emergency department was significantly fluid overloaded with dyspnea, hypoxia and mild respiratory acidosis. He felt it was from COPD, but elevated BNP levels and crackles on exam prompted treatment for CHF exacerbation with IV Lasix which improved his situation. Although he improved slightly he continued to require 4 L of nasal cannula oxygen flow to keep his oxygen saturations above 90%, and he was admitted for further observation, IV Lasix and diagnostic testing. Hospital Course Hospital Course: Patient was admitted and aggressively diuresed with Lasix which she had excellent response to. A little more than 24 hours after admission and diuresis patient was able to be weaned from supplemental oxygen and maintain oxygen saturations in the mid to high 90s. Repeat chest x-ray the morning of admission was interpreted as bilateral pulmonary infiltrates. His lung exam did have persistent left medial rales posteriorly. Patient received azithromycin on admission and Rocephin was added on October 05. Sputum culture showed multiple organisms on Gram stain and at the time of this dictation is not finalized. Aerobic blood culture drawn on admission had no growth after 48 hours. Anaerobic culture appeared to be growing a gram-positive cocci. Patient will be continued on antibiotic at discharge for pneumonia although I suspect his blood culture is a contaminant as he has been free of signs of infection such as fevers or chills. Patient has chronic systolic CHF with an EF of 40% and after diuresing his acute CHF resolved. No medication changes were made. Objective Vital signs: Temp Pulse Resp BP Pulse Ox 98.3 F 71 18 133/79 97 10/06/18 04:00 10/06/18 06:14 10/06/18 04:00 10/06/18 04:00 10/06/18 04:00 Results Labs on day of discharge: Labs from last 24 hours 10/06/18 10/05/18 10/05/18 06:17 19:47 16:36 Total Counted Neutrophils % (Manual) Band Neutrophils % Lymphocytes % (Manual) Monocytes % (Manual) Platelet Estimate Jett Cells Schistocytes Sodium Potassium Chloride Carbon Dioxide Anion Gap BUN Creatinine Estimated Creat Clear Estimated GFR Est GFR ( Amer) Glucose POC Glucose 138 H 157 H 239 H Calcium 10/05/18 10/05/18 10/05/18 11:03 06:09 06:09 Total Counted 100 Neutrophils % (Manual) 58 Band Neutrophils % 33.0 H Lymphocytes % (Manual) 2 L Monocytes % (Manual) 7 Platelet Estimate Normal [place] Cells 1+ Schistocytes 1+ Sodium 143 Potassium 2.9 L* Chloride 106 Carbon Dioxide 26 Anion Gap 13.9 BUN 32 H D Creatinine 1.55 H Estimated Creat Clear 42 Estimated GFR 43 L Est GFR ( Amer) 52 L Glucose 249 H D POC Glucose 315 H* Calcium 8.3 L Preliminary micro results at discharge 10/03/18 23:24 Blood Culture - Preliminary Blood NO GROWTH AFTER 48 HOURS 10/03/18 23:24 Blood Culture - Preliminary Blood 10/04/18 06:21 Sputum Culture - Preliminary Sputum - Expectorated Sputum DS: Diagnosis - Discharge Diagnosis (1) Acute on chronic systolic congestive heart failure, NYHA class 2 Status: Acute (2) Left lower lobe pneumonia Status: Acute (3) Acute respiratory failure with hypoxia Status: Acute (4) Atrial fibrillation, chronic Status: Acute (5) Elevated troponin Status: Acute (6) COPD exacerbation Status: Acute (7) Congestive heart failure Status: Acute (8) Chronic renal insufficiency, stage II (mild) Status: Acute Discharge Plan - Patient Discharge Instructions ACTIVITY: Continue current activity DIET: continue same diet Patient Instructions: Chronic Obstructive Pulmonary Disease, Heart Failure, Cou kurt Vitamin K/ Diet, Coumadin Therapy Booklet - Follow up Plan Follow up with: Arnulfo Helms MD [Primary Care Provider] - 10/09/18 10:00 am Disposition: Home, Self-Long Term Medications: Home Medications Medication Instructions Recorded Confirmed Type Aspirin [Aspirin 81mg chewable 81 mg PO DAILY 06/06/17 10/03/18 History tab] Carvedilol [Carvedilol 25mg Tab] 25 mg PO DAILY 06/06/17 10/03/18 History Furosemide [Lasix 40mg tab] 40 mg PO DAILY 06/06/17 10/03/18 History Warfarin Sodium 2.[address] [facility] 06/06/17 10/04/18 History glipiZIDE [Glipizide] 10 mg PO BID 06/06/17 10/03/18 History Benazepril HCl 40 mg PO DAILY 10/03/18 10/03/18 History Doxazosin Mesylate [Doxazosin 8mg 8 mg PO HS 10/03/18 10/03/18 History Tab] Fluocinonide/Emollient Base 15 gm TP BID 10/03/18 10/03/18 History [Fluocinonide-E 0.05% Cream] Multivitamin [Daily Multiple 1 each PO DAILY 10/03/18 10/03/18 History Vitamin] Potassium Chloride [K-Tab ER 10 10 meq PO DAILY 10/03/18 10/03/18 History mEq] Pravastatin Sodium [Pravachol 40mg 40 mg PO HS 10/03/18 10/03/18 History Tablet] Metformin HCl 1,000 mg PO BID 10/04/18 10/04/18 History Warfarin Sodium 5 mg PO TU 10/04/18 10/04/18 History cefUROXime axetil [Ceftin 500mg 500 mg PO BID #20 tab 10/06/18 Rx Tab (GEQ)] Prescriptions/Medication Reconciliation: New cefUROXime axetil [Ceftin 500mg Tab (GEQ)] 500 mg PO BID #20 tab Continued Furosemide [Lasix 40mg tab] 40 mg PO DAILY Aspirin [Aspirin 81mg chewable tab] 81 mg PO DAILY Carvedilol [Carvedilol 25mg Tab] 25 mg PO DAILY Warfarin Sodium 2.5 mg PO [place] Potassium Chloride [K-Tab ER 10 mEq] 10 meq PO DAILY Pravastatin Sodium [Pravachol 40mg Tablet] 40 mg PO HS Multivitamin [Daily Multiple Vitamin] 1 each PO DAILY Fluocinonide/Emollient Base [Fluocinonide-E 0.05% Cream] 15 gm TP BID Doxazosin Mesylate [Doxazosin 8mg Tab] 8 mg PO HS Benazepril HCl 40 mg PO DAILY glipiZIDE [Glipizide] 10 mg PO BID Warfarin Sodium 5 mg PO TU Metformin HCl 1,000 mg PO BID
[2018-10-06 07:25] LABS: Basophils % 0.2 % (0.1-2.0); Eosinophils # 0.1 K/mm3 (0.0-0.4); Eosinophils % 0.3 % (0.1-12.0); Hematocrit 37.2 % (42.0-52.0); Lymphocytes # 1.5 K/mm3 (0.7-4.5); Mean Corpuscular HGB Conc 32.2 g/dL (31.8-35.4); Mean Corpuscular Hemoglobin 28.1 pg (27.0-31.2); Mean Corpuscular Volume 87.1 fl (80-94); Mean Platelet Volume 9.9 fl (7.4-10.4); Monocytes # 0.8 K/mm3 (0.1-1.0); Neutrophils # 13.9 K/mm3 (1.8-7.8); Neutrophils % 85.4 % (37.0-80.0); Platelet Count 208 K/mm3 (142-424); Red Blood Count 4.27 M/mm3 (4.60-6.20); Red Cell Distribution Width 14.1 % (11.5-17.5); White Blood Count 16.3 K/mm3 (4.8-10.8)
[2018-10-06 07:30] LABS: INR 1.64 (0.9-1.1); Prothrombin Time 16.7 seconds (9.4-11.8)
[2018-10-06 07:32] LABS: Anion Gap 12.7 mEq/L (5-15); Calcium 8.7 mg/dL (8.5-10.1); Potassium 3.7 mmoL/L (3.5-5.1)
[2018-10-06 08:25] LABS: Lymphocytes % 6 % (10-50); Monocytes % 12 % (2-9); Neutrophils % 81 % (42-76); RBC Morphology Normal; Total Cells Counted 100
== END 2018-10-06 09:09 | disposition home or self-care (01) | DRG 291 ==
LOC: ER 22:40 → 2ND 10-04 00:36
PROVIDERS: ADMIT Internal Medicine Adolescent Medicine; ATTEND Family Medicine
CPT/HCPCS: 36415; 71010; 71020; 71045; 71046; 80048; 80053; 82803; 82962; 83605; 83880; 84484; 85007; 85025; 85610; 87040; 87070; 87077; 87186; 87205; 93005; 93306; 94640; 94760; 94761; 96374; 96375; 99284; J0456

== ENCOUNTER 2019-01-03 06:58 | Observation (INO) ==
[2019-01-03 07:15] LABS: Basophils # 0.1 K/mm3 (0-0.2); Basophils % 0.8 % (0.1-2.0); Eosinophils # 1.1 K/mm3 (0.0-0.4); Eosinophils % 10.2 % (0.1-12.0); Hematocrit 37.5 % (42.0-52.0); Hemoglobin 13.1 g/dL (14.1-18.0); Lymphocytes # 1.8 K/mm3 (0.7-4.5); Lymphocytes % 16.4 % (10-50); Mean Corpuscular HGB Conc 34.8 g/dL (31.8-35.4); Mean Corpuscular Volume 87.4 fl (80-94); Monocytes # 0.8 K/mm3 (0.1-1.0); Monocytes % 7.3 % (1.7-9.3); Neutrophils % 65.3 % (37.0-80.0); Platelet Count 294 K/mm3 (142-424); Red Cell Distribution Width 14.3 % (11.5-17.5); White Blood Count 10.8 K/mm3 (4.8-10.8)
[2019-01-03 07:32] LABS: INR 1.98 (0.9-1.1); Prothrombin Time 19.9 seconds (9.4-11.8)
--- NOTE | 2019-01-03 07:35 | Emergency Department Note ---
ED Disposition Clinical Impression: Angina at rest, Atrial fibrillation, chronic Disposition: Admitted as Observation Condition on Discharge: Good Referrals: Arnulfo Helms MD [Primary Care Provider] - - Critical Care Critical Care Time: No Attestation: On 01/03/19, the high probability of a clinically significant, sudden or life threatening deterioration of the following system(s) required my full and direct attention, intervention and personal management. The time I documented below is in addition to time spent performing reported procedures but includes the following listed in this critical care notation. Medical Decision Making - Medical Records Medical records reviewed: Yes: I reviewed the patient's medical records. - Shai Inquiry Pt receiving controlled substance: No Vital Signs: 01/03/19 06:59 01/03/19 07:29 Temperature 97.7 F Temperature Source Oral Pulse Rate [Right] 69 61 Respiratory Rate 18 18 Blood Pressure [Right Arm] 151/77 H 121/64 Blood Pressure Mean [Right Arm] 101 83 Blood Pressure Source [Right Arm] Automatic Cuff Automatic Cuff Blood Pressure Position [Right Arm] Supine Sitting 02 Sat by Pulse Oximetry 97 95 Oxygen Delivery Method Room Air Room Air - Lab Data Lab results reviewed: Yes: I reviewed the patient's lab results. Lab Results 01/03/19 07:00: WBC 10.8, RBC 4.30 L, Hgb 13.1 L, Hct 37.5 L, MCV 87.4, MCH 30.4, MCHC 34.8, RDW 14.3, Plt Count 294, MPV 9.0, Neut % (Auto) 65.3, Lymph % (Auto) 16.4, [place] % (Auto) 7.3, Eos % (Auto) 10.2, Baso % (Auto) 0.8, Neut # (Auto) 7.0, Lymph # (Auto) 1.8, [place] # (Auto) 0.8, Eos # (Auto) 1.1 H, Baso # (Auto) 0.1 01/03/19 07:00: Sodium 146 H, Potassium 3.7, Chloride 107, Carbon Dioxide 28, Anion Gap 14.7, BUN 17, Creatinine 1.12, Estimated Creat Clear 61, Estimated GFR 63, Est GFR ( Amer) 76, Glucose 120 H, Calcium 8.8, Troponin I 0.03 01/03/19 07:00: PT 19.9 H, INR 1.98 H Result diagrams: 01/03/19 07:00 01/03/19 07:00 Orders (Tests/Meds): ED MEDICATIONS Discontinued Medications Generic Name Dose Route Start Last Admin Trade Name Josselyn PRN Reason Stop Dose Admin Aspirin 243 mg 01/03/19 07:05 01/03/19 07:18 Aspirin 81mg Chewable Tablet PO 01/03/19 07:06 243 mg ONCE ONE Administration Nitroglycerin 1 gm 01/03/19 07:05 01/03/19 07:18 Nitroglycerin 1 Inch Oint Udp TD 01/03/19 07:06 1 gm ONCE ONE Administration ORDERS Category Date Time Status XR chest 2V Stat Exams 01/03/19 07:05 Taken - Radiology Data #1 Image(s): Chest Image Reviewed: Yes I reviewed the patient's radiology image Preliminary Findings: Abnormal (chronic changes ) - ECG Data Tracing #1 Arrhythmias present: afib Ischemic changes: non-specific ST-T wave changes ECG compared to prior tracings: there are no significant changes Chest Pain HPI - General Chief Complaint: Chest Pain Stated Complaint: Chest Pain Time Seen by Provider: 01/03/19 07:15 Mode of Arrival: Ambulatory Source of Information: Patient, Medical Record Limitations: No Limitations Description of Symptoms (Recalled from ER Triage Doc. by RN): Chest pain last night, pt took 2 Nitro [employer] relieved pain - History of Present Illness HPI narrative: pt with hx of heart dis had episode of chest heaviness this am and was relieved with ntg - has chronic a fib - MD complaint: chest pain indicative of cardiac Onset (ago): hour(s) Duration: now resolved Activity at onset: during rest Pain location: substernal Severity: moderate Quality: heaviness Relieving factors: nitroglycerin Risk Factors for CAD: Hypertension, Family Hx of CAD, Diabetes Treatments prior to or on arrival for Cardiac Chest Pain: nitroglycerin - CHANDRAKANT Score for Non-Stemi Age of Patient: 80-89 years old Heart Rate: 50-69 bpm Systolic Blood Pressure: 140-159 mmHg Serum Creatinine: 0.80-1.19 mg/dl CHF [place] Class: I-No CHF Other Risk Factors: None Non-Stemi Risk Score: 125 - Related Data Prior Cardiac Testing/Procedures: CABG Home Medications Medication Instructions Recorded Confirmed Aspirin [Aspirin 81mg chewable 81 mg PO DAILY 06/06/17 01/03/19 tab] Carvedilol [Carvedilol 25mg Tab] 25 mg PO DAILY 06/06/17 01/03/19 Furosemide [Lasix 40mg tablet] 40 mg PO DAILY 06/06/17 01/03/19 Warfarin Sodium 2.5 mg PO [place] 06/06/17 01/03/19 glipiZIDE [Glipizide] 10 mg PO BID 06/06/17 01/03/19 Benazepril HCl 40 mg PO DAILY 10/03/18 01/03/19 Doxazosin Mesylate [Doxazosin 8mg 8 mg PO HS 10/03/18 01/03/19 Tab] Fluocinonide/Emollient Base 15 gm TP BID 10/03/18 01/03/19 [Fluocinonide-E 0.05% Cream] Multivitamin [Daily Multiple 1 each PO DAILY 10/03/18 01/03/19 Vitamin] Potassium Chloride [K-Tab ER 10 10 meq PO DAILY 10/03/18 01/03/19 mEq] Pravastatin Sodium [Pravachol 40mg 40 mg PO HS 10/03/18 01/03/19 Tablet] Metformin HCl [Metformin 1000mg 1,000 mg PO BID 10/04/18 01/03/19 Tablets] Warfarin Sodium 5 mg PO TU 10/04/18 01/03/19 Albuterol Sulfate [Proair 2 puffs IH Q6 PRN 01/03/19 01/03/19 Respiclick] Tiotropium [place] [Spiriva 1 puff IH DAILY 01/03/19 01/03/19 18mcg/puff inhaler] cefUROXime axetil [Ceftin 500mg 500 mg PO BID 01/03/19 01/03/19 Tab (GEQ)] Allergies Allergy/AdvReac Type Severity Reaction Status Date / Time No Known Allergies Allergy Verified 01/03/19 07:09 [facility] History - Hepatitis A Screen Drug use history?: No High risk sexual behaviors?: No History of sexually transmitted infection?: No Currently employed?: No Childcare worker?: No Do you have indoor plumbing?: Yes Do you have electricity?: Yes Attestation statement:: This patient has been screened for Hepatitis A risk factors. I have reviewed the patient's past medical history: Yes Medical History: Reports:: Chronic Obstructive Pulmonary Disease (COPD), Coronary Artery Disease, Diabetes Mellitus Type 2, Hyperlipidemia, Hypertension, Myocardial Infarction Denies:: Cancer, MRSA Laterality Cases: Bilateral: Tonsillectomy Other Surgeries: Yes: Appendectomy, CABG, Cardiac Catheterization, Cardiac Surgery, Splenectomy, Other (CABGx3, neck surg) Amputation: No Fractures: Yes (HX OF BROKEN R ARM.) - Social History Smoking Status: Former smoker Tobacco Type: cigarettes # Packs/Day (cigarettes): 3 Alcohol Intake: never Occupational Status: retired Family Hx:: Coronary Artery Disease, Diabetes, Heart Attack, Hyperlipidemia, Hypertension ROS Obtained: Yes All systems reviewed & no additional complaints - Constitutional Constitutional: Denies fever(s) - Eyes Eyes: Denies change in vision - ENT Ears, Nose, Mouth, and Throat: Denies sore throat - Cardiovascular Cardiovascular: Reports chest pain, Denies dyspnea - Respiratory Respiratory: No cough - Gastrointestinal Gastrointestingal: Denies: abdominal pain - Genitourinary Male Genitourinary: Denies hematuria - Musculoskeletal Musculoskeletal: Denies joint pain - Integumentary/Breasts Skin/Breast: Denies rash - Neurologic Neurologic: Denies seizure-like activity Physical Exam - General General appearance: alert - Head Head exam: normocephalic - Eye Eye exam: Present: PERRL, EOMI. Absent: scleral icterus - ENT ENT exam: Present: normal oropharynx - Neck Neck exam: Present: trachea midline - Respiratory Respiratory exam: Present: normal lung sounds bilaterally. Absent: respiratory distress - Cardiovascular Cardiovascular exam: Present: irregular rhythm, systolic murmur, +S4 - Abdominal Exam Abdominal exam: Present: soft - Extremities Exam Extremities exam: Present: full ROM - Neurological Exam Neurological exam: Present: alert, oriented X3, CN II-XII intact - Psychiatric Psychiatric exam: Present: normal affect - Skin Skin exam: Absent: rash
[2019-01-03 07:43] LABS: Anion Gap 14.7 mEq/L (5-15); Calcium 8.8 mg/dL (8.5-10.1)
--- NOTE | 2019-01-03 11:05 | Pharmacy Consult Notes ---
[facility] Pharmacy VTE Monitoring - Patient Demographics Admission date: 01/03/19 Report Date: 01/03/19 Time: 11:05 Allergies/Adverse Reactions: Patient Allergies No Known Allergies Allergy (Verified 01/03/19 07:09) Height: 1.8 m Weight: 85.275 kg Patient Problems: Current Active Problems Atrial fibrillation, chronic (Acute) Angina at rest (Acute) - VTE Risk Labs: VTE Related Lab Results Hgb 13.1 g/dL (14.1-18.0) L 01/03/19 07:00 Hct 37.5 % (42.0-52.0) L 01/03/19 07:00 Plt Count 294 K/mm3 (142-424) 01/03/19 07:00 PT 19.9 seconds (9.4-11.8) H 01/03/19 07:00 INR 1.98 (0.9-1.1) H 01/03/19 07:00 BUN 17 mg/dL (7-18) 01/03/19 07:00 Creatinine 1.12 mg/dL (0.70-1.30) 01/03/19 07:00 Estimated Creat Clear 61 mL/min (50-200) 01/03/19 07:00 VTE Score: 1 - Prophylaxis Types of VTE Prophylaxis: TEDS Knee High (CHAIM HOSE ORDERED, WARFARIN SUBTHERPEUTIC), Pharmacological Pharmacologic Type: Warfarin
[2019-01-04 06:25] LABS: Basophils # 0.1 K/mm3 (0-0.2); Basophils % 0.5 % (0.1-2.0); Hematocrit 38.4 % (42.0-52.0); Hemoglobin 12.3 g/dL (14.1-18.0); Lymphocytes # 1.9 K/mm3 (0.7-4.5); Lymphocytes % 17.8 % (10-50); Mean Corpuscular HGB Conc 32.2 g/dL (31.8-35.4); Mean Corpuscular Volume 87.1 fl (80-94); Mean Platelet Volume 9.1 fl (7.4-10.4); Monocytes # 0.8 K/mm3 (0.1-1.0); Monocytes % 7.5 % (1.7-9.3); Neutrophils # 6.9 K/mm3 (1.8-7.8); Neutrophils % 65.2 % (37.0-80.0); Platelet Count 291 K/mm3 (142-424); Red Cell Distribution Width 14.2 % (11.5-17.5); White Blood Count 10.6 K/mm3 (4.8-10.8)
[2019-01-04 06:50] LABS: Anion Gap 13.5 mEq/L (5-15); Calcium 8.8 mg/dL (8.5-10.1)
--- NOTE | 2019-01-04 07:25 | H&P/Discharge Summary ---
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 Patient has a history of coronary artery disease, status post CABG, and diesel engine fitter is Dr. Emery who patient last saw in September. Patient tells me over the last week he has been battling a respiratory infection. He was seen in my office on December 28 and then went to the urgent treatment clinic on the evening of December 28 because he felt like he could not catch his breath. He was diagnosed with a COPD exacerbation in the urgent treatment clinic and started on cefuroxime. Patient states since starting antibiotics he has had a hard time sleeping each night. He reports on the evening of the he tried to go to bed at his usual time. He cannot fall asleep and so he stayed awake until approximately 3 in the morning. It was at this point that he experienced some chest heaviness that resolved after a single nitroglycerin. Patient decided to take a second nitroglycerin despite being free of chest pain and come to the emergency department. In the emergency department he was evaluated and his first troponin was negative. Decision was made to admit for serial troponins. Patient has not had any further chest pain. He had echocardiogram in September which showed stable ejection fraction of 40%. He did not sleep well here in the hospital overnight. He continues to endorse cough with mild yellow sputum production. He denies shortness of breath on exertion, orthopnea, paroxysmal nocturnal dyspnea. [facility] History I have reviewed the patient's past medical history: Yes Medical History: Reports:: Chronic Obstructive Pulmonary Disease (COPD), Coronary Artery Disease, Diabetes Mellitus Type 2, Hyperlipidemia, Hypertension, Myocardial Infarction Denies:: Cancer, MRSA *Have you ever received a pneumonia vaccine?: Yes *Have you received a flu vaccine this season?: Yes Laterality Cases: Bilateral: Tonsillectomy Other Surgeries: Yes: Appendectomy, CABG, Cardiac Catheterization, Cardiac Surgery, Splenectomy, Other (CABGx3, neck surg) Amputation: No Fractures: Yes (HX OF BROKEN R ARM.) - *Social History Educational Level: Completed High School Smoking Status: Former smoker Tobacco Type: cigarettes # Packs/Day (cigarettes): 3 Alcohol Intake: never *Occupational Status:: retired Housing: house *Travel in the last 8 weeks: None - Psychiatric History Expresses thoughts of harming self/others: None Suicide Plan Description: No Plan Family Hx:: Coronary Artery Disease, Diabetes, Heart Attack, Hyperlipidemia, Hypertension Review of Systems - Review of Systems Review of systems:: pertinent systems reviewed and negative unless documented below - Constitutional Denies body ache(s), Denies chills, Denies fatigue, Denies fever(s), Denies headache(s), Denies increased appetite - *Cardiovascular Reports chest pain, Reports chest pain at rest, Reports irregular heart rhythm, Denies chest pain with activity, Denies shortness of breath, Denies shortness of breath with activity - *Respiratory Reports change in phlegm color, Reports chest congestion, Reports cough, Reports shortness of breath, Denies coughing up blood, Denies wheezing - *Gastrointestinal Denies abdominal pain - *Genitourinary Denies difficulty urinating - *Musculoskeletal Denies abnormal walking - *Neurologic Denies seizure-like activity Exam Vital signs and Labs for Last 24 Hours: Temp Pulse Resp BP Pulse Ox 97.9 F 77 17 160/80 H 96 01/04/19 04:00 01/04/19 04:33 01/04/19 04:00 01/04/19 04:26 01/04/19 04:00 Laboratory Results - last 24 hr 01/03/19 07:00: WBC 10.8, RBC 4.30 L, Hgb 13.1 L, Hct 37.5 L, MCV 87.4, MCH 30.4, MCHC 34.8, RDW 14.3, Plt Count 294, MPV 9.0, Neut % (Auto) 65.3, Lymph % (Auto) 16.4, [place] % (Auto) 7.3, Eos % (Auto) 10.2, Baso % (Auto) 0.8, Neut # (Auto) 7.0, Lymph # (Auto) 1.8, [place] # (Auto) 0.8, Eos # (Auto) 1.1 H, Baso # (Auto) 0.1 01/03/19 07:00: Sodium 146 H, Potassium 3.7, Chloride 107, Carbon Dioxide 28, Anion Gap 14.7, BUN 17, Creatinine 1.12, Estimated Creat Clear 61, Estimated GFR 63, Est GFR ( Amer) 76, Glucose 120 H, Calcium 8.8, Troponin I 0.03 01/03/19 07:00: PT 19.9 H, INR 1.98 H 01/03/19 11:05: Troponin I 0.02 01/03/19 11:15: POC Glucose 170 H 01/03/19 13:55: Troponin I 0.02 01/03/19 16:57: POC Glucose 166 H 01/03/19 21:26: POC Glucose 107 01/04/19 03:01: POC Glucose 103 01/04/19 05:33: WBC 10.6, RBC 4.40 L, Hgb 12.3 L, Hct 38.4 L, MCV 87.1, MCH 28.0, MCHC 32.2, RDW 14.2, Plt Count 291, MPV 9.1, Neut % (Auto) 65.2, Lymph % (Auto) 17.8, [place] % (Auto) 7.5, Eos % (Auto) 9.0, Baso % (Auto) 0.5, Neut # (Auto) 6.9, Lymph # (Auto) 1.9, [place] # (Auto) 0.8, Eos # (Auto) 1.0 H, Baso # (Auto) 0.1 01/04/19 05:33: Sodium 145, Potassium 3.5, Chloride 108 H, Carbon Dioxide 27, Anion Gap 13.5, BUN 15, Creatinine 1.00, Estimated Creat Clear 67, Estimated GFR 72, Est GFR ( Amer) 87, Glucose 97, Calcium 8.8, Magnesium 1.6 01/04/19 05:34: POC Glucose 106 I & O for Last 24 hours: Intake & Output 01/01/19 01/02/19 01/03/19 01/04/19 11:59 11:59 11:59 11:59 Intake Total 240 / 240 1033 / 1033 Output Total 500 / 500 Balance 240 / 240 533 / 533 Weight 188 lb 182 lb 6 oz Narrative: Patient is in no distress. Oropharynx is moist and noninflamed. Neck is without lymphadenopathy. Lungs have sonorous expiratory rhonchi. Heart has an irregularly irregular rate and rhythm. Abdomen is soft and nontender. Extremities have no edema. Hospital Course Hospital Course: Patient was admitted and ruled out for ID with serial troponins. He remained chest pain-free. Patient was given a single dose of azithromycin intravenously for his COPD exacerbation which I would classify as mild. He was discharged home and will follow-up in the office with me and also follow-up as an outpatient with his diesel engine fitter. Results Labs on day of discharge: Labs from last 24 hours 01/04/19 01/04/19 01/04/19 05:34 05:33 05:33 WBC 10.6 RBC 4.40 L Hgb 12.3 L Hct 38.4 L MCV 87.1 MCH 28.0 MCHC 32.2 RDW 14.2 Plt Count 291 MPV 9.1 Neut % (Auto) 65.2 Lymph % (Auto) 17.8 [place] % (Auto) 7.5 Eos % (Auto) 9.0 Baso % (Auto) 0.5 Neut # (Auto) 6.9 Lymph # (Auto) 1.9 [place] # (Auto) 0.8 Eos # (Auto) 1.0 H Baso # (Auto) 0.1 PT INR Sodium 145 Potassium 3.5 Chloride 108 H Carbon Dioxide 27 Anion Gap 13.5 BUN 15 Creatinine 1.00 Estimated Creat Clear 67 Estimated GFR 72 Est GFR ( Amer) 87 Glucose 97 POC Glucose 106 Calcium 8.8 Magnesium 1.6 Troponin I 01/04/19 01/03/19 01/03/19 03:01 21:26 16:57 WBC RBC Hgb Hct MCV MCH MCHC RDW Plt Count MPV Neut % (Auto) Lymph % (Auto) [place] % (Auto) Eos % (Auto) Baso % (Auto) Neut # (Auto) Lymph # (Auto) [place] # (Auto) Eos # (Auto) Baso # (Auto) PT INR Sodium Potassium Chloride Carbon Dioxide Anion Gap BUN Creatinine Estimated Creat Clear Estimated GFR Est GFR ( Amer) Glucose POC Glucose 103 107 166 H Calcium Magnesium Troponin I 01/03/19 01/03/19 01/03/19 13:55 11:15 11:05 WBC RBC Hgb Hct MCV MCH MCHC RDW Plt Count MPV Neut % (Auto) Lymph % (Auto) [place] % (Auto) Eos % (Auto) Baso % (Auto) Neut # (Auto) Lymph # (Auto) [place] # (Auto) Eos # (Auto) Baso # (Auto) PT INR Sodium Potassium Chloride Carbon Dioxide Anion Gap BUN Creatinine Estimated Creat Clear Estimated GFR Est GFR ( Amer) Glucose POC Glucose 170 H Calcium Magnesium Troponin I 0.02 0.02 01/03/19 01/03/19 01/03/19 07:00 07:00 07:00 WBC 10.8 RBC 4.30 L Hgb 13.1 L Hct 37.5 L MCV 87.4 MCH 30.4 MCHC 34.8 RDW 14.3 Plt Count 294 MPV 9.0 Neut % (Auto) 65.3 Lymph % (Auto) 16.4 [place] % (Auto) 7.3 Eos % (Auto) 10.2 Baso % (Auto) 0.8 Neut # (Auto) 7.0 Lymph # (Auto) 1.8 [place] # (Auto) 0.8 Eos # (Auto) 1.1 H Baso # (Auto) 0.1 PT 19.9 H INR 1.98 H Sodium 146 H Potassium 3.7 Chloride 107 Carbon Dioxide 28 Anion Gap 14.7 BUN 17 Creatinine 1.12 Estimated Creat Clear 61 Estimated GFR 63 Est GFR ( Amer) 76 Glucose 120 H POC Glucose Calcium 8.8 Magnesium Troponin I 0.03 DS: Diagnosis - Discharge Diagnosis (1) Stable angina Status: Acute (2) Atrial fibrillation, chronic Status: Acute (3) COPD exacerbation Status: Acute Discharge Plan - Patient Discharge Instructions ACTIVITY: Continue current activity DIET: continue same diet Patient Instructions: DI for Chest Pain - Follow up Plan Follow up with: Gilbert Wiggins [Referring] - Disposition: Home, Self-Assisted Medications: Home Medications Medication Instructions Recorded Confirmed Type Carvedilol [Carvedilol 25mg Tab] 25 mg PO BID 06/06/17 01/03/19 History Furosemide [Lasix 40mg tablet] 40 mg PO DAILY 06/06/17 01/03/19 History Warfarin Sodium 2.5 mg PO SUMOWETHFRSA 06/06/17 01/03/19 History glipiZIDE [Glipizide] 10 mg PO BID 06/06/17 01/03/19 History Benazepril HCl 40 mg PO DAILY 10/03/18 01/03/19 History Doxazosin Mesylate [Doxazosin 8mg 8 mg PO HS 10/03/18 01/03/19 History Tab] Fluocinonide/Emollient Base 15 gm TP BID 10/03/18 01/03/19 History [Fluocinonide-E 0.05% Cream] Multivitamin [Daily Multiple 1 each PO DAILY 10/03/18 01/03/19 History Vitamin] Potassium Chloride [K-Tab ER 10 10 meq PO DAILY 10/03/18 01/03/19 History mEq] Pravastatin Sodium [Pravachol 40mg 40 mg PO HS 10/03/18 01/03/19 History Tablet] Metformin HCl [Metformin 1000mg 1,000 mg PO BID 10/04/18 01/03/19 History Tablets] Albuterol Sulfate [Proair 2 puffs IH Q6 PRN 01/03/19 01/03/19 History Respiclick] Aspirin [Aspirin 81mg EC Tab] 81 mg PO DAILY 01/03/19 01/03/19 History Tiotropium [place] [Spiriva 1 puff IH DAILY 01/03/19 01/03/19 History 18mcg/puff inhaler] Warfarin Sodium 5 mg PO TU 01/03/19 01/03/19 History cefUROXime axetil [Ceftin 500mg 500 mg PO BID 01/03/19 01/03/19 History Tab (GEQ)] Azithromycin [Zithromax 250mg 250 mg PO DAILY #3 tab 01/04/19 Rx tab] Prescriptions/Medication Reconciliation: New Azithromycin [Zithromax 250mg tab] 250 mg PO DAILY #3 tab Continued Furosemide [Lasix 40mg tablet] 40 mg PO DAILY Carvedilol [Carvedilol 25mg Tab] 25 mg PO BID Warfarin Sodium 2.5 mg PO [facility] Potassium Chloride [K-Tab ER 10 mEq] 10 meq PO DAILY Pravastatin Sodium [Pravachol 40mg Tablet] 40 mg PO HS Multivitamin [Daily Multiple Vitamin] 1 each PO DAILY Fluocinonide/Emollient Base [Fluocinonide-E 0.05% Cream] 15 gm TP BID Doxazosin Mesylate [Doxazosin 8mg Tab] 8 mg PO HS Benazepril HCl 40 mg PO DAILY Albuterol Sulfate [Proair Respiclick] 2 puffs IH Q6 PRN PRN Reason: Shortness Of Breath Warfarin Sodium 5 mg PO TU glipiZIDE [Glipizide] 10 mg PO BID Metformin HCl [Metformin 1000mg Tablets] 1,000 mg PO BID Tiotropium [place] [Spiriva 18mcg/puff inhaler] 1 puff IH DAILY Aspirin [Aspirin 81mg EC Tab] 81 mg PO DAILY Discontinued cefUROXime axetil [Ceftin 500mg Tab (GEQ)] 500 mg PO BID - Problem Reconciliation Problems Reviewed?: Yes
--- NOTE | 2019-01-04 21:16 | Cardiology Report ---
PROCEDURE: 2-D M-mode and color Doppler study INDICATIONS FOR THE TEST: Chest pain COPDX Heart Murmur Tobacco SmokingEX Palpitations Fatigue Syncope Edema HypertensionXDiabetes MellitusX Rheumatic Fever SOBXDOE Obesity HyperlipidemiaX Family History HD Additional History CHF,CABG,CAD,CHRONIC AF,STENTS PATIENT INFORMATION HEIGHT: 71 WEIGHT:188 GENDER: Male B/P:145/80 2-D/M-MODE INTERPRETATION: 2-D MEASUREMENTS OBSERVED VALUES IN CMS Right Ventricular Dimension (RVDd) 1.3 Interventricular Septum (Thickness)(IVsd) .9 Left Ventricular Internal Dimensions(LVIDd) 5.0 Left Ventricular Posterior Wall (Thickness)(LVPWd) .9 Aortic Root 2.8 Aortic Cusp Separation 1.8 Left Atrial Dimensions (LAD) 5.0 2D 1. Left atrium is moderately enlarged, left ventricle is normal size, mild concentric left ventricular hypertrophy, moderately reduced left ventricular systolic function, visually estimated ejection fraction 35-40%, there is marked hypokinesis involving mid to distal septum, apex, inferior inferior basal and posterolateral wall. 2. The right atrium and right ventricle are mildly enlarged with normal contractility. 3. The aortic valve is thickened and calcified, leaflet continue to display mobility. 4. The mitral and tricuspid valve leaflets are minimally thickened. 5. The pulmonic valve is poorly visualized. 6. No significant pericardial effusion noted. DOPPLER INTERROGATION: Doppler interrogation of the aortic, mitral and tricuspid valvular presence of moderate mitral, mild aortic and mild tricuspid regurgitation, tricuspid regurgitation jet velocity is inadequate for calculation of the right ventricular systolic pressure, diastolic parameters are inconclusive. Inferior vena cava is not well visualized. CONCLUSION: 1. Moderately enlarged left atrium, normal left ventricular size, mild concentric left ventricular hypertrophy, moderately reduced left ventricular systolic function, visually estimated ejection fraction 35-40% with multiple segmental wall motion abnormality described above, diastolic parameters are inconclusive. 2. Mildly enlarged right ventricle with normal contractility. 3. Mild aortic, moderate mitral and mild tricuspid regurgitation 4. No significant pericardial effusion noted.
== END 2019-01-04 10:12 | disposition home or self-care (01) ==
LOC: ER 06:58 → 2ND 06:58
PROVIDERS: ADMIT Internal Medicine Adolescent Medicine; ATTEND Family Medicine
CPT/HCPCS: 36415; 71020; 71046; 80048; 82962; 83735; 84484; 85025; 85610; 93005; 93306; 99284; G0378

== ENCOUNTER 2020-11-15 08:02 | Emergency (ER) | payer MEDICARE, SELFPAY ==
[2020-11-15] VITALS (8 sets, daily range): BP systolic 145–173; BP diastolic 80–96; PULSE 46–69; RESP 8–18; TEMP 36.7–36.9; O2SAT 94–99; BMI 27.2
--- NOTE | 2020-11-15 08:06 | XR_ITS ---
PROCEDURE: XR CHEST PORTABLE CLINICAL HISTORY: Chest pain previous smoker COMPARISON: CR CXR2V XR chest 2V from 10/04/2018 CR Chest from 12/28/2018 CR XR CHEST 2V from 01/03/2019 FINDINGS: Lung okeefe are well-expanded appear clear of infiltrate. May be some minimal atelectasis or scarring in the right perihilar region. There is mild generalized cardiomegaly and there are sternal wire sutures and surgical clips noted from previous CABG. Costophrenic angles are clear. IMPRESSION: Mild cardiomegaly, no acute chest pathology noted Dictated by: Dr. Amadeo Barnes MD 11/15/2020 08:35 Dr. Amadeo Barnes MD in [place] 11/15/2020 08:35
--- NOTE | 2020-11-15 08:09 | ECG_ITS ---
APPROVED REPORT Exam: Resting ECG HR:68 bpm ECG Measurements Heart Rate 68 AXES QRSd 108 QRS 58 QT 450 T 184 QTc 478 Conclusion Atrial fibrillation with premature ventricular or aberrantly conducted complexes Possible Inferior infarct, age undetermined Abnormal ECG Electronically signed by : Arnulfo Cleveland, 11/16/2020 18:07:10
--- NOTE | 2020-11-15 08:10 | HMH.EDGENADL ---
ED Disposition Clinical Impression: Chest pain Qualifiers: Chest pain type: other chest pain Qualified Code(s): R07.89 - Other chest pain Disposition: Home, Self-Care Condition on Discharge: Good Referrals: Arnulfo Helms MD [Primary Care Provider] - 11/17/20 10:30 am Time of Disposition: 10:22 - Critical Care Critical Care Time: No Attestation: On 11/15/20, the high probability of a clinically significant, sudden or life threatening deterioration of the following system(s) required my full and direct attention, intervention and personal management. The time I documented below is in addition to time spent performing reported procedures but includes the following listed in this critical care notation. Medical Decision Making - Medical Records Medical records reviewed: Yes: I reviewed the patient's medical records. - Shai Inquiry Pt receiving controlled substance: No Vital Signs: 11/15/20 08:03 11/15/20 08:09 11/15/20 08:30 Temperature 98.1 F Temperature Source Oral Pulse Rate 69 63 Pulse Rate [Right] 61 Respiratory Rate 16 15 12 Blood Pressure 167/96 H 161/86 H Blood Pressure [Right Arm] 167/90 H Blood Pressure Mean [Right Arm] 115 02 Sat by Pulse Oximetry 97 97 97 Oxygen Delivery Method Room Air 11/15/20 08:58 11/15/20 09:00 11/15/20 09:30 Temperature Temperature Source Pulse Rate 53 L 46 L 51 L Pulse Rate [Right] Respiratory Rate 9 L 8 L 11 L Blood Pressure 165/83 H 165/80 H 173/81 H Blood Pressure [Right Arm] Blood Pressure Mean [Right Arm] 02 Sat by Pulse Oximetry 97 96 97 Oxygen Delivery Method 11/15/20 10:01 Temperature Temperature Source Pulse Rate 51 L Pulse Rate [Right] Respiratory Rate 13 Blood Pressure 168/82 H Blood Pressure [Right Arm] Blood Pressure Mean [Right Arm] 02 Sat by Pulse Oximetry 94 L Oxygen Delivery Method - Lab Data Lab results reviewed: Yes: I reviewed the patient's lab results. Lab Results 11/15/20 08:20: WBC 11.1 H, RBC 4.64, Hgb 13.2 L, Hct 38.9 L, MCV 83.7, MCH 28.5, MCHC 34.1, RDW 14.3, Plt Count 241, MPV 9.8, Neut % (Auto) 66.5, Lymph % (Auto) 13.9, [place] % (Auto) 7.2, Eos % (Auto) 11.4, Baso % (Auto) 1.0, Neut # (Auto) 7.4, Lymph # (Auto) 1.5, [place] # (Auto) 0.8, Eos # (Auto) 1.3 H, Baso # (Auto) 0.1 11/15/20 08:20: Sodium 142, Potassium 3.4 L, Chloride 106, Carbon Dioxide 27, Anion Gap 12.4, BUN 17, Creatinine 1.10, Estimated Creat Clear 61, Estimated GFR 64, Est GFR ( Amer) 77, Glucose 154 H, Calcium 8.8, Troponin I 0.02 11/15/20 08:20: NT-Pro-B Natriuret Pep 2650 H Result diagrams: 11/15/20 08:20 11/15/20 08:20 Orders (Tests/Meds): ED MEDICATIONS Discontinued Medications Generic Name Dose Route Start Last Admin Trade Name Freq PRN Reason Stop Dose Admin Furosemide 40 mg 11/15/20 09:32 11/15/20 09:44 Furosemide 40mg/4ml Vial IV 11/15/20 09:33 40 mg ONCE ONE Administration ORDERS Category Date Time Status INR [Prothrombin Time INR] Stat Lab 11/15/20 10:12 Received Troponin I Q3H Lab 11/15/20 11:15 Ordered Troponin I Q3H Lab 11/15/20 14:15 Ordered - Radiology Data #1 Image(s): Chest Image Reviewed: Yes I have reviewed radiologist's interpretation Preliminary Findings: Abnormal Mild cardiomegaly - ECG Data Tracing #1 I reviewed this ECG and interpreted as documented below: A. fib with occasional PVC. No ST elevation or depression, prolonged QT. ECG initial impression date: 11/15/20 ECG initial impression time: 08:11 Medical Decision Narrative: 85yo M evaluated for chest pain. Patient is asymptomatic upon arrival. Differential diagnosis includes was not limited to: ACS/ND, pneumonia, PE, anxiety, GERD, musculoskeletal injury, aortic injury, pneumothorax. Patient is in no acute distress. He is quite pleasant. Routine cardiac work-up has been initiated. Patient is post be taken Coumadin for his A. fib, and INR has been ordered. Chest x-ray show
--- NOTE | 2020-11-15 08:16 | PC.NURSE ---
Rad at bedside
[2020-11-15 08:29] LABS: Basophils # 0.1 K/mm3 (0-0.2); Eosinophils # 1.3 K/mm3 (0.0-0.4); Eosinophils % 11.4 % (0.1-12.0); Hematocrit 38.9 % (42.0-52.0); Hemoglobin 13.2 g/dL (14.1-18.0); Lymphocytes # 1.5 K/mm3 (0.7-4.5); Lymphocytes % 13.9 % (10-50); Mean Corpuscular HGB Conc 34.1 g/dL (31.8-35.4); Mean Corpuscular Hemoglobin 28.5 pg (27.0-31.2); Mean Corpuscular Volume 83.7 fl (80-94); Mean Platelet Volume 9.8 fl (7.4-10.4); Monocytes # 0.8 K/mm3 (0.1-1.0); Monocytes % 7.2 % (1.7-9.3); Neutrophils # 7.4 K/mm3 (1.8-7.8); Neutrophils % 66.5 % (37.0-80.0); Platelet Count 241 K/mm3 (142-424); Red Blood Count 4.64 M/mm3 (4.60-6.20); Red Cell Distribution Width 14.3 % (11.5-17.5); White Blood Count 11.1 K/mm3 (4.8-10.8)
[2020-11-15 08:41] LABS: Chloride 106 mmol/L (98-107); Sodium 142 mmol/L (136-145)
[2020-11-15 08:42] LABS: Potassium 3.4 mmoL/L (3.5-5.1)
[2020-11-15 08:44] LABS: Blood Urea Nitrogen 17 mg/dl (9-20); Creatinine Clearance Estimated 61 mL/min (50-200); Estimated Glomerular Filt Rate 64 ml/min (>60); GFR (African American) 77 ML/MIN (>60)
[2020-11-15 08:45] LABS: Anion Gap 12.4 mEq/L (5-15); Calcium 8.8 mg/dl (8.4-10.2); Carbon Dioxide 27 mmol/L (22.0-30.0); Glucose 154 mg/dl (74-100)
[2020-11-15 08:58] LABS: Troponin I 0.02 ng/ml (0.00-0.034)
[2020-11-15 09:01] LABS: NT Pro Brain Natriuretic Pep. 2650 pg/mL (0-450)
--- NOTE | 2020-11-15 10:00 | PC.NURSE ---
Calling Dr Helms
--- NOTE | 2020-11-15 10:10 | PC.NURSE ---
Dr Helms to return call.
--- NOTE | 2020-11-15 10:12 | PC.NURSE ---
300ml of urine output at this time.
--- NOTE | 2020-11-15 10:17 | PC.NURSE ---
Dr Helms returned call.
--- NOTE | 2020-11-15 10:18 | PC.NURSE ---
RAY ALEXIS speaking with Dr. Helms
[2020-11-15 10:29] LABS: Prothrombin Time 21.9 seconds (10.1-12.5)
[2020-11-15 11:16] LABS: INR 1.95 (0.9-1.1)
== END 2020-11-15 10:36 | disposition home or self-care (01) ==
PROVIDERS: Emergency Provider Family Medicine; PCP Family Medicine
DX: R07.89 Other chest pain (principal); I48.91 Unspecified atrial fibrillation; R06.02 Shortness of breath; J44.9 Chronic obstructive pulmonary disease, unspecified; E11.9 Type 2 diabetes mellitus without complications; E78.5 Hyperlipidemia, unspecified; I25.2 Old myocardial infarction; I10 Essential (primary) hypertension; Z87.891 Personal history of nicotine dependence; Z95.1 Presence of aortocoronary bypass graft
CPT/HCPCS: 71045; 80048; 83880; 84484; 85025; 85610; 93005; 96374; 99282

== ENCOUNTER → 2021-05-28 14:52 | Outpatient (CLI) | payer MEDICARE, SELFPAY | PROVIDERS: PCP Family Medicine; Visit Provider Nurse Practitioner | DX: U07.1 COVID-19 (principal) | CPT/HCPCS: C9803; U0003; U0005 ==

== ENCOUNTER → 2021-12-28 07:45 | Outpatient (CLI) | payer MEDICARE, SELFPAY ==
--- NOTE | 2021-12-28 07:52 | FL_ITS ---
FINAL REPORT CLINICAL HISTORY: dysphgia, .39 fluoro time FINDINGS: ESOPHAGRAM HISTORY: Dysphagia PROCEDURE: The patient ingested barium. Effervescent crystals were also administered. Spot films were obtained. FINDINGS: . Examination is limited as the patient frankly aspirated thick barium. There is a small hiatal hernia without obvious esophageal stricture or gastroesophageal reflux. There was significant esophageal dysmotility during the exam. IMPRESSION: Placido aspiration with significant esophageal dysmotility and small sliding type hiatal hernia. Speech pathologist consult recommended. Films reviewed , interpreted and dictated by Dr. Finney. Transcribed by Jason Marin PA-C. Reviewed, Interpreted and Dictated by Kayden Finney III, MD Transcribed by MARIXA Vila Authenticated and [facility]
== END ==
PROVIDERS: PCP Family Medicine; Visit Provider Family Medicine
DX: R13.19 Other dysphagia (principal)
CPT/HCPCS: 74220

== ENCOUNTER 2022-04-12 17:19 | Emergency (ER) | payer MEDICARE, SELFPAY ==
[2022-04-12] VITALS (9 sets, daily range): BP systolic 150–188; BP diastolic 90–133; PULSE 62–99; RESP 16–18; TEMP 36.7; O2SAT 94–97; BMI 26.8
--- NOTE | 2022-04-12 17:14 | ECG_ITS ---
APPROVED REPORT Exam: Resting ECG HR:86 bpm ECG Measurements Heart Rate 86 AXES QRSd 119 QRS 107 QT 396 T 230 QTc 439 Conclusion ATRIAL FIBRILLATION WITH ABERRANT CONDUCTION OR VENTRICULAR PREMATURE COMPLEXES RIGHT AXIS DEVIATION [QRS AXIS > 100] MODERATE INTRAVENTRICULAR CONDUCTION DELAY [110+ ms QRS DURATION] ST DEVIATION AND MODERATE T-WAVE ABNORMALITY, CONSIDER INFERIOR ISCHEMIA [-0.1+ mV T-WAVE IN II/aVF] ABNORMAL ECG UNCONFIRMED REPORT Electronically signed by : Arnulfo Cleveland MD 04/13/2022 21:14:22
--- NOTE | 2022-04-12 17:20 | PC.NURSE ---
RAY ALEXIS at
--- NOTE | 2022-04-12 17:24 | XR_ITS ---
PROCEDURE INFORMATION: Exam: XR Chest Exam date and time: 04/12/2022 6:00 PM Age: 87 years old Clinical indication: Other: Weakness TECHNIQUE: Imaging protocol: Radiologic exam of the chest. Views: 1 view. COMPARISON: CR XR CHEST PORTABLE 11/15/2020 8:21 AM FINDINGS: Lungs: There is an increase in interstitial markings bilaterally, which is nonspecific. Possible etiologies include interstitial edema and atypical infection. Left basilar atelectatic change/infiltrate visualized, with progression compared to the previous exam. Pleural spaces: Blunting of the bilateral costophrenic angles with pleural effusions, right side greater than left. Heart/Mediastinum: The cardiac silhouette appears enlarged. Bones/joints: Sternotomy wires visualized. Within the proximal right humerus, there is a 5 mm nonspecific osteoblastic/sclerotic lesion, stable compared to the prior study. Hypertrophic degenerative changes are noted involving the spine. Bilateral acromioclavicular arthropathy. IMPRESSION: 1. Bilateral pleural effusions, right side greater than left. 2. Left basilar atelectatic change/infiltrate visualized, with progression compared to the previous exam. Clinical correlation and follow-up radiographs are recommended. 3. There is an increase in interstitial markings bilaterally, which is nonspecific. Possible etiologies include interstitial edema and atypical infection. 4. The cardiac silhouette appears enlarged.
--- NOTE | 2022-04-12 17:24 | CT_ITS ---
PROCEDURE INFORMATION: Exam: CT Head Without Contrast Exam date and time: 04/12/2022 5:42 PM Age: 87 years old Clinical indication: Stroke-like symptoms; Right facial droop; Additional info: R facial droop TECHNIQUE: Imaging protocol: Computed tomography of the head without contrast. Radiation optimization: All CT scans at this facility use at least one of these dose optimization techniques: automated exposure control; mA and/or kV adjustment per patient size (includes targeted exams where dose is matched to clinical indication); or iterative reconstruction. Other technique: STROKE PROTOCOL was implemented. COMPARISON: No relevant prior studies available. FINDINGS: Brain: A small hypodense lacunar infarct is visualized within the right basal ganglia, indeterminate in acuity. No acute intracranial hemorrhage is visualized. The mckeon-white differentiation is otherwise preserved. There are scattered foci of white matter hypodensity, likely representing small vessel ischemic disease. The acuity of the white matter disease is indeterminate. There is no midline shift. There is moderate prominence of sulci, compatible with atrophy. Artifact limits evaluation of the sybil. Asymmetric increased fluid within the cerebellar convexities, left side greater than right. This can be contributed by atrophy. Cerebral ventricles: Mild age-appropriate prominence of ventricles. Paranasal sinuses: Mucous retention cysts or polyps in the bilateral maxillary sinuses. Mastoid air cells: No mastoid effusion. Orbital cavities: Bilateral orbital lens implants. Bones/joints: The calvarium demonstrates no evidence for a depressed fracture. Soft tissues: Unremarkable. Vasculature: A tiny focus of hyperdensity is associated with the right middle cerebral artery. Intracranial atherosclerosis visualized. IMPRESSION: 1. A small lacunar infarct is visualized within the right basal ganglia, indeterminate in acuity. If further evaluation is clinically indicated, an MRI of the brain is recommended. 2. A tiny focus of hyperdensity is associated with the right middle cerebral artery. Correlation with CTA recommended if there is a clinical concern for acute ischemia. 3. There are scattered foci of white matter hypodensity, likely representing small vessel ischemic disease. 4. Moderate atrophy. 5. Additional findings described above. ASSESSMENT: ASPECTS ([place] Stroke Program Early CT Score) is 9.
--- NOTE | 2022-04-12 17:27 | HMH.EDGENADL ---
Discharge Plan Disposition Patient Disposition: Xfer Short-Term Hosp Condition: Fair Chief Complaint: Weakness Prescriptions Prescriptions: No Action potassium chloride 10 MEQ tablet extended release 10 meq PO DAILY benazepril 40 MG tablet 40 mg PO DAILY metformin 1,000 MG tablet 1,000 mg PO BID aspirin 81 MG tablet,delayed release (DR/EC) 81 mg PO DAILY atorvastatin 20 mg Tablet 20 mg PO DAILY tamsulosin 0.4 mg Capsule 0.4 mg PO DAILY sertraline 50 mg Tablet 50 mg PO DAILY Eliquis 5 mg Tablet 5 mg PO BID furosemide 40 MG tablet 40 mg PO DAILY carvedilol 25 MG tablet 6.25 mg PO BID glipizide 10 MG tablet 10 mg PO BID Clinical Impressions Clinical Impression: Congestive heart failure, Generalized weakness, Hypertension, uncontrolled Discharge ED Provider: Merritt Lucia General Adult HPI General Chief complaint: Weakness Stated complaint: weakness, not ate today Time Seen by Provider: 04/12/22 17:19 History of Present Illness HPI narrative: Patient is brought in by ambulance. He does not have any specific complaints. Family is not currently present, but they apparently told EMS that the patient did not want to get out of bed today. He did eventually walk from his bed to a chair a few feet away. They stated that he had not eaten today. EMS states that the patient was sitting on the side of the bed upon their arrival and was able to walk into the matute using a walker. EMS notes a right-sided facial droop, patient told EMS that it had been present for a couple of weeks. He tells me that he noticed her several days ago . He says that he does not have any more pain than he usually has, states he is achy all over as is his usual. States he is occasionally short of breath. Occasionally coughs. Denies any vomiting or diarrhea. Denies any headache. Denies visual disturbance. Denies numbness or weakness of his extremities. Related Data Home Medications Medication Instructions Recorded Confirmed carvedilol 25 mg tablet 6.25 mg PO BID High blood pressure 06/06/17 04/12/22 furosemide 40 mg tablet 40 mg PO DAILY High blood pressure 06/06/17 04/12/22 glipizide 10 mg tablet 10 mg PO BID Diabetes 06/06/17 04/12/22 benazepril 40 mg tablet 40 mg PO DAILY High blood pressure 10/03/18 04/12/22 potassium chloride 10 mEq 10 meq PO DAILY Supplement 10/03/18 04/12/22 tablet,extended release metformin 1,000 mg tablet 1,000 mg PO BID Diabetes 10/04/18 04/12/22 aspirin 81 mg tablet,delayed 81 mg PO DAILY CIRCULATION 01/03/19 04/12/22 release apixaban 5 mg tablet (Eliquis) 5 mg PO BID Blood thinner 04/12/22 04/12/22 atorvastatin 20 mg tablet 20 mg PO DAILY Cholesterol 04/12/22 04/12/22 sertraline 50 mg tablet 50 mg PO DAILY mood 04/12/22 04/12/22 tamsulosin 0.4 mg capsule 0.4 mg PO DAILY prostate 04/12/22 04/12/22 Allergies Allergy/AdvReac Type Severity Reaction Status Date / Time No Known Allergies Allergy Verified 01/03/19 07:09 [facility] Surgical History (Updated 04/12/22 @ 19:19 by Nitza Castillo RN) H/O splenectomy Hx of CABG Social History Smoking Status: Former smoker second hand exposure: Yes alcohol intake: never current occupational status: retired Travel in the last 8 weeks: None housing: house caffeine: No ROS Obtained: Yes Systems reviewed as appropriate & no additional complaints except as documented Constitutional Constitutional: Denies fever(s), Denies headache(s) and Reports poor appetite Eyes Eyes: Denies change in vision ENT Ears, Nose, Mouth, and Throat: Denies headache(s), Denies nasal discharge and Denies sore throat Cardiovascular Cardiovascular: Denies chest pain Respiratory Respiratory: Reports shortness of breath and Reports cough Gastrointestinal Gastrointestingal: Denies abdominal pain, constipation, diarrhea or vomiting Genitourinary Male Genitourinary: Denies difficulty
--- NOTE | 2022-04-12 17:27 | PC.NURSE ---
rad notified of CT head order, stroke protocol
[2022-04-12 17:38] LABS: Basophils # 0.1 K/mm3 (0-0.2); Basophils % 0.6 % (0.1-2.0); Eosinophils # 0.2 K/mm3 (0.0-0.4); Eosinophils % 2.5 % (0.1-12.0); Hematocrit 46.8 % (42.0-52.0); Lymphocytes # 1.3 K/mm3 (0.7-4.5); Lymphocytes % 13.7 % (10-50); Mean Corpuscular Hemoglobin 28.1 pg (27.0-31.2); Mean Corpuscular Volume 87.8 fl (80-94); Mean Platelet Volume 10.8 fl (7.4-10.4); Monocytes # 0.6 K/mm3 (0.1-1.0); Monocytes % 6.3 % (1.7-9.3); Neutrophils # 7.4 K/mm3 (1.8-7.8); Neutrophils % 76.9 % (37.0-80.0); Platelet Count 304 K/mm3 (142-424); Red Blood Count 5.33 M/mm3 (4.60-6.20); White Blood Count 9.6 K/mm3 (4.8-10.8)
--- NOTE | 2022-04-12 17:38 | PC.NURSE ---
pt to CT
[2022-04-12 17:46] LABS: Chloride 103 mmol/L (98-107); Potassium 3.6 mmoL/L (3.5-5.1); Sodium 141 mmol/L (136-145)
--- NOTE | 2022-04-12 17:47 | PC.NURSE ---
pt returned from CT. Family at bedside
[2022-04-12 17:48] LABS: Blood Urea Nitrogen 24 mg/dl (9-20); Creatinine Clearance Estimated 58 mL/min (50-200); Estimated Glomerular Filt Rate 63 ml/min (>60); GFR (African American) 77 ML/MIN (>60)
[2022-04-12 17:49] LABS: Alanine Aminotransferase 26 U/L (12-78); Albumin Level 3.6 g/dl (3.5-5.0); Albumin/Globulin Ratio 1.6 (1.1-1.8); Alkaline Phosphatase 86 U/L (38-126); Anion Gap 13.6 mEq/L (5-15); Aspartate Amino Transferase 31 U/L (17-59); Bilirubin,Total 2.5 mg/dl (0.2-1.3); Calcium 9.5 mg/dl (8.4-10.2); Carbon Dioxide 28 mmol/L (22.0-30.0); Creatine Kinase 107 U/L (55-170); Globulin 2.3 g/dL (1.3-3.2); Glucose 134 mg/dl (74-100); Total Protein,Serum 5.9 g/dl (6.3-8.2)
--- NOTE | 2022-04-12 17:50 | PC.NURSE ---
rad at BS for portable xray
[2022-04-12 17:51] LABS: INR 1.11 (0.9-1.1); Prothrombin Time 11.9 seconds (10.1-12.5)
[2022-04-12 17:58] LABS: CKMB Relative Index 4.5 U/L (0-4.0); Creatine Kinase MB 4.8 ng/ml (0.0-2.03)
[2022-04-12 18:01] LABS: Troponin I 0.06 ng/ml (0.00-0.034)
[2022-04-12 18:03] LABS: Coronavirus 19, PCR Not Detected (NotDetected); Influenza A, PCR Not Detected (NotDetected); Influenza B, PCR Not Detected (NotDetected)
--- NOTE | 2022-04-12 18:06 | CT_ITS ---
PROCEDURE INFORMATION: Exam: CTA Head With Contrast, Arteriography Exam date and time: 04/12/2022 6:41 PM Age: 87 years old Clinical indication: Screening exam; Abnml CT head; Additional info: Abnl CT brain TECHNIQUE: Imaging protocol: Computed tomographic angiography of the head with contrast. Exam focused on the arteries. 3D rendering (Not supervised by radiologist): MIP and/or 3D reconstructed images were created by the technologist. Radiation optimization: All CT scans at this facility use at least one of these dose optimization techniques: automated exposure control; mA and/or kV adjustment per patient size (includes targeted exams where dose is matched to clinical indication); or iterative reconstruction. Contrast material: ISOVUE 370; Contrast volume: 100 ml; Contrast route: INTRAVENOUS (IV); COMPARISON: CT HEAD/BRAIN WO CON 04/12/2022 5:42 PM FINDINGS: ANTERIOR CIRCULATION: Right internal carotid artery: Intracranial segment is patent with no significant stenosis. No aneurysm. Right middle cerebral artery: No occlusion or significant stenosis. No aneurysm. Right anterior cerebral artery: No occlusion or significant stenosis. No aneurysm. Left internal carotid artery: Intracranial segment is patent with no significant stenosis. No aneurysm. Left middle cerebral artery: No occlusion or significant stenosis. No aneurysm. Left anterior cerebral artery: No occlusion or significant stenosis. No aneurysm. POSTERIOR CIRCULATION: Right vertebral artery: No occlusion or significant stenosis. No aneurysm. Left vertebral artery: No occlusion or significant stenosis. No aneurysm. Basilar artery: No occlusion or significant stenosis. No aneurysm. Right posterior cerebral artery: No occlusion or significant stenosis. No aneurysm. Left posterior cerebral artery: No occlusion or significant stenosis. No aneurysm. Brain: No definite mass, mass effect, or midline shift. Cerebral ventricles: No ventriculomegaly. Bones/joints: Unremarkable. No acute fracture. Soft tissues: Unremarkable. Pleural spaces: Loculated bilateral pleural effusion. IMPRESSION: No CTA evidence of acute large vessel occlusion.
--- NOTE | 2022-04-12 18:06 | CT_ITS ---
PROCEDURE INFORMATION: Exam: CTA Neck With Contrast Exam date and time: 04/12/2022 6:41 PM Age: 87 years old Clinical indication: Screening exam; Abnml CT head; Additional info: Abnl CT brain TECHNIQUE: Imaging protocol: Computed tomographic angiography of the neck with contrast. 3D rendering (Not supervised by radiologist): MIP and/or 3D reconstructed images were created by the technologist. Radiation optimization: All CT scans at this facility use at least one of these dose optimization techniques: automated exposure control; mA and/or kV adjustment per patient size (includes targeted exams where dose is matched to clinical indication); or iterative reconstruction. Contrast material: ISOVUE 370; Contrast volume: 100 ml; Contrast route: INTRAVENOUS (IV); COMPARISON: CT CHEST WO CON 04/12/2022 6:35 PM FINDINGS: Right common carotid artery: No stenosis. No dissection or occlusion. Right internal carotid artery: No stenosis of the extracranial segment. No dissection or occlusion. Right external carotid artery: No occlusion or stenosis of the origin. Left common carotid artery: No stenosis. No dissection or occlusion. Left internal carotid artery: No stenosis of the extracranial segment. No dissection or occlusion. Left external carotid artery: No occlusion or stenosis of the origin. Right vertebral artery: No stenosis. No dissection or occlusion. Left vertebral artery: No stenosis. No dissection or occlusion. Soft tissues: Normal. No significant soft tissue swelling. Bones/joints: No acute fracture. IMPRESSION: No stenosis or occlusion. REFERENCES: NASCET CRITERIA. The degree of stenosis in the cervical segment of the internal carotid artery is based on NASCET criteria. Normal is no stenosis. Mild is less than 50% stenosis. Moderate is 50-69% stenosis. Severe is 70% to 99% stenosis. Total occlusion is no detectable patent lumen.
--- NOTE | 2022-04-12 18:07 | PC.NURSE ---
speaking with DELPHINE
--- NOTE | 2022-04-12 18:09 | CT_ITS ---
PROCEDURE INFORMATION: Exam: CT Chest Without Contrast; Diagnostic Exam date and time: 04/12/2022 6:35 PM Age: 87 years old Clinical indication: Screening exam; Other screening; Prior surgery; Surgery date: 6+ months; Surgery type: Open heart; Additional info: Abnl cxr TECHNIQUE: Imaging protocol: Diagnostic computed tomography of the chest without contrast. Radiation optimization: All CT scans at this facility use at least one of these dose optimization techniques: automated exposure control; mA and/or kV adjustment per patient size (includes targeted exams where dose is matched to clinical indication); or iterative reconstruction. COMPARISON: CR XR CHEST PORTABLE 04/12/2022 6:00 PM FINDINGS: Thyroid: 12 mm low-density nodule in the left thyroid lobe does not require further evaluation based on current consensus criteria. Lungs: Mild bilateral bronchial wall thickening suggesting mild changes of bronchial edema versus bronchitis. Interlobular septal thickening in the pulmonary apices and peripheral juxtapleural interstitial prominence in the mid and basilar lung okeefe consistent with interstitial pulmonary edema. Patchy peribronchovascular alveolar opacities bilaterally suggests an element of alveolar edema. Pneumonia less likely though not excluded. Compressive atelectasis in the lower lobes. No pulmonary mass lesions are identified. 8 mm juxtapleural nodule versus nodular atelectasis or scarring in the posterior right apex on series 5, image 15. 6 mm nodule in the lateral right upper lobe on image 22. 5 mm nodule in the anterior right mid lung on image 43. For patients at low risk (minimal or absent history of smoking and of other known risk factors), recommend CT at 3-6 months, then consider CT at 18-24 months. For patients at high risk (history of smoking or of other known risk factors), recommend CT at 3-6 months, then CT at 18-24 months. (Eric et al., Fleischner Society, 2017). Pleural spaces: Moderate bilateral pleural effusions. Partial loculation in the posterior left apical distribution. No pneumothorax. Heart: Moderate cardiomegaly.Severe coronary artery calcification. Mediastinal space: The esophagus is largely contracted without gross abnormality. Lymph nodes: No supraclavicular or axillary adenopathy. No mediastinal or hilar adenopathy. 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 No evidence of rupture. No mediastinal hematoma. Mild dilatation of the central pulmonary arteries suggesting mild pulmonary arterial hypertension. Intraperitoneal space: Visualized upper abdominal structures are unremarkable. Bones/joints: No acute osseous abnormalities are identified. Osteopenia. Moderate thoracic spondylosis. Soft tissues: Unremarkable. IMPRESSION: 1. Moderate cardiomegaly with severe coronary artery calcification and changes of interstitial and alveolar pulmonary edema with moderate bilateral pleural effusions. The findings suggest CHF. Patchy pneumonia considered less likely though not excluded. 2. Mild changes of pulmonary arterial hypertension. 3. Mild bronchial wall thickening suggesting mild bronchial edema versus bronchitis. 4. Noncalcified pulmonary nodules measuring up to 8 mm in size. Please see recommendations above. 5. Additional nonemergent findings detailed above. COMMENTS: Consistent with the [employer]'s Incidental Findings Committee white paper (J Am Tanya Radiol 2015): In patients aged 35 years and older with an incidental thyroid nodule equal to or greater than 1.5
[2022-04-12 18:12] LABS: Lactic Acid 1.7 mmol/L (0.7-2.1)
[2022-04-12 18:42] LABS: NT Pro Brain Natriuretic Pep. 5390 pg/mL (0-450)
--- NOTE | 2022-04-12 18:44 | PC.NURSE ---
pt in radiology at this time for CTAs
--- NOTE | 2022-04-12 19:16 | PC.NURSE ---
shift change report given to jeimy moe; jeimy del rosario; chinorn
--- NOTE | 2022-04-12 20:14 | PC.NURSE ---
[facility] phone with [facility]
[2022-04-12 20:23] LABS: Microscopic, Urine URINE MICROSCOPIC (MICROSCOPIC)
[2022-04-12 20:49] LABS: Appearance,Urine CLEAR (Clear); Bilirubin,Urine Negative (Negative); Blood, Urine Negative (Negative); Color,Urine YELLOW (Yellow); Glucose,Urine (UA) Negative (Negative); Ketones,Urine 1+ (Negative); Leukocyte Esterase,Urine 1+ (Negative); Nitrate,Urine Negative (Negative); PH,Urine 5.5 (5.0-8.5); Protein,Urine 1+ (Negative); Specific Gravity, Urine 1.025 (1.005-1.030); Urobilinogen,Urine 0.2 EU/dl (0.2)
[2022-04-12 20:52] LABS: Bacteria,Urine Trace /lpf
== END 2022-04-13 | disposition short-term general hospital (02) ==
PROVIDERS: Emergency Provider Emergency Medicine; PCP Family Medicine
DX: I50.9 Heart failure, unspecified (principal); I11.0 Hypertensive heart disease with heart failure; R53.1 Weakness; Z79.01 Long term (current) use of anticoagulants; Z79.82 Long term (current) use of aspirin; Z79.84 Long term (current) use of oral hypoglycemic drugs; Z79.899 Other long term (current) drug therapy; E11.9 Type 2 diabetes mellitus without complications; Z95.1 Presence of aortocoronary bypass graft; Z87.891 Personal history of nicotine dependence; I25.10 Atherosclerotic heart disease of native coronary artery without angina pectoris; J44.9 Chronic obstructive pulmonary disease, unspecified
CPT/HCPCS: 70450; 70496; 70498; 71045; 71250; 80053; 81001; 82550; 82553; 83605; 83880; 84484; 85025; 85610; 87040; 87086; 93005; 96374; 99285; C9803; Q9967; U0003; U0005

== ENCOUNTER 2022-06-16 14:55 | Emergency (ER) | payer MEDICARE, SELFPAY ==
[2022-06-16] VITALS (16 sets, daily range): BP systolic 108–137; BP diastolic 70–103; PULSE 64–96; RESP 16–20; TEMP 36.6–36.7; O2SAT 86–98; BMI 26.4
--- NOTE | 2022-06-16 15:36 | XR_ITS ---
PROCEDURE INFORMATION: Exam: XR Chest Exam date and time: 06/16/2022 4:01 PM Age: 87 years old Clinical indication: Shortness of breath; Additional info: SOA, swelling TECHNIQUE: Imaging protocol: Radiologic exam of the chest. Views: 1 view. AP portable upright exam 4:08 p.m. COMPARISON: CT CHEST WO CON 04/12/2022 6:35 PM FINDINGS: Lungs: Likely compressive atelectasis in the lower lungs due to pleural effusions. Pulmonary vascular prominence, likely mild vascular congestion. Dense left retrocardiac atelectasis versus consolidation. Pleural spaces: Bilateral layering pleural effusions chronic compared with the prior exam from 04/12/2022, small on the right and moderate on the left. No pneumothorax. Heart/Mediastinum: Chronic cardiomegaly, mediastinal surgical changes. Vasculature: Calcified plaques in the aortic arch. Bones/joints: Sternotomy wires.There are spinal degenerative changes, with multilevel disc narrrowing and spondylosis. IMPRESSION: 1. Findings are most likely due to CHF; cardiomegaly, bilateral layering pleural effusions, pulmonary vessels appear congested. 2. Compressive atelectasis in the lower lungs due to the effusions, and possible left retrocardiac consolidation which could be edema or pneumonia.
--- NOTE | 2022-06-16 15:52 | HMH.EDGENADL ---
Discharge Plan Disposition Patient Disposition: Xfer Short-Term Hosp Condition: Fair Chief Complaint: Extremity Injury, Lower Prescriptions Prescriptions: No Action potassium chloride 10 MEQ tablet extended release 10 meq PO DAILY benazepril 40 MG tablet 40 mg PO DAILY metformin 1,000 MG tablet 1,000 mg PO BID aspirin 81 MG tablet,delayed release (DR/EC) 81 mg PO DAILY atorvastatin 20 mg Tablet 20 mg PO DAILY tamsulosin 0.4 mg Capsule 0.4 mg PO DAILY sertraline 50 mg Tablet 50 mg PO DAILY Eliquis 5 mg Tablet 5 mg PO BID furosemide 40 MG tablet 40 mg PO DAILY carvedilol 25 MG tablet 6.25 mg PO BID glipizide 10 MG tablet 10 mg PO BID Referrals Follow up/Referrals: Amber Paul MD [Primary Care Provider] - See instructions Clinical Impressions Clinical Impression: Congestive heart failure Discharge ED Provider: Merritt Lucia General Adult HPI General Chief complaint: Extremity Injury, Lower Stated complaint: edema Time Seen by Provider: 06/16/22 15:24 Mode of Arrival: EMS Source of Information: Patient Limitations: Physical Limitations Description of Symptoms (Recalled from ER Triage Doc. by RN): Pt by ems for reported increased LE edema and weeping; on arrival pt agrees w report although no gross extravasation or weeping noted, although 3+ pitting edema noted; NAD, pt GCS 15 History of Present Illness HPI narrative: History obtained from patient and daughter. He is brought in by ambulance. Daughter reports increasing lower extremity edema and weight gain. From 06/14/2022 through 06/15/2022 he gained over 5 pounds. He has weeping from the swelling on his legs. He complained of increasing shortness of breath this morning. He denies chest pain. He has had no fever. No cough. Daughter notes increased daytime sleepiness. She also states he has had a lot of diarrhea. He has a history of congestive heart failure. Recently seen in this emergency department about a month ago and transferred to the [facility] for congest[facility] heart failure. Daughter states that he stayed there about 3 days. She says they requested EMS to take him to the [facility] today, but they said they could not. Related Data Home Medications Medication Instructions Recorded Confirmed carvedilol 25 mg tablet 6.25 mg PO BID High blood pressure 06/06/17 04/12/22 furosemide 40 mg tablet 40 mg PO DAILY High blood pressure 06/06/17 04/12/22 glipizide 10 mg tablet 10 mg PO BID Diabetes 06/06/17 04/12/22 benazepril 40 mg tablet 40 mg PO DAILY High blood pressure 10/03/18 04/12/22 potassium chloride 10 mEq 10 meq PO DAILY Supplement 10/03/18 04/12/22 tablet,extended release metformin 1,000 mg tablet 1,000 mg PO BID Diabetes 10/04/18 04/12/22 aspirin 81 mg tablet,delayed 81 mg PO DAILY CIRCULATION 01/03/19 04/12/22 release apixaban 5 mg tablet (Eliquis) 5 mg PO BID Blood thinner 04/12/22 04/12/22 atorvastatin 20 mg tablet 20 mg PO DAILY Cholesterol 04/12/22 04/12/22 sertraline 50 mg tablet 50 mg PO DAILY mood 04/12/22 04/12/22 tamsulosin 0.4 mg capsule 0.4 mg PO DAILY prostate 04/12/22 04/12/22 Allergies Allergy/AdvReac Type Severity Reaction Status Date / Time No Known Allergies Allergy Verified 01/03/19 07:09 [facility] Disclaimer: The information contained in this section may have been updated after the patient was seen, as this information can be updated by other users. Surgical History (Updated 04/12/22 @ 19:19 by Nitza Castillo RN) H/O splenectomy Hx of CABG Social History Smoking Status: Former smoker second hand exposure: Yes alcohol intake: never current occupational status: retired Travel in the last 8 weeks: None housing: house caffeine: No ROS Obtained: Yes Systems reviewed as appropriate & no additional complaints except as documented Constitutional Constitutional: Reports daytime sleepiness, Denies fever(s
--- NOTE | 2022-06-16 16:03 | ECG_ITS ---
APPROVED REPORT Exam: Resting ECG HR:76 bpm ECG Measurements Heart Rate 76 AXES QRSd 110 QRS 77 QT 425 T 150 QTc 455 Conclusion ATRIAL FIBRILLATION WITH ABERRANT CONDUCTION OR VENTRICULAR PREMATURE COMPLEXES LOW QRS VOLTAGE IN EXTREMITY LEADS [QRS DEFLECTION < 0.5 mV IN LIMB LEADS] ABNORMAL QRS-T ANGLE [QRS-T AXIS DIFFERENCE > 60] ABNORMAL ECG UNCONFIRMED REPORT Electronically signed by : Arnulfo Cleveland MD 06/17/2022 20:14:28
[2022-06-16 16:06] LABS: Basophils % 0.5 % (0.1-2.0); Eosinophils # 0.2 K/mm3 (0.0-0.4); Eosinophils % 2.6 % (0.1-12.0); Hematocrit 39.9 % (42.0-52.0); Hemoglobin 12.3 g/dL (14.1-18.0); Lymphocytes # 0.9 K/mm3 (0.7-4.5); Lymphocytes % 11.2 % (10-50); Mean Corpuscular HGB Conc 30.8 g/dL (31.8-35.4); Mean Corpuscular Hemoglobin 27.5 pg (27.0-31.2); Mean Corpuscular Volume 89.3 fl (80-94); Mean Platelet Volume 11.1 fl (7.4-10.4); Monocytes # 0.6 K/mm3 (0.1-1.0); Monocytes % 7.7 % (1.7-9.3); Neutrophils % 78.1 % (37.0-80.0); Platelet Count 281 K/mm3 (142-424); Red Blood Count 4.47 M/mm3 (4.60-6.20); Red Cell Distribution Width 15.7 % (11.5-17.5); White Blood Count 7.7 K/mm3 (4.8-10.8)
[2022-06-16 16:08] LABS: Chloride 107 mmol/L (98-107); Potassium 3.7 mmoL/L (3.5-5.1); Sodium 142 mmol/L (136-145)
[2022-06-16 16:10] LABS: Blood Urea Nitrogen 30 mg/dl (9-20); Creatinine Clearance Estimated 54 mL/min (50-200); Estimated Glomerular Filt Rate 57 ml/min (>60); GFR (African American) 69 ML/MIN (>60)
[2022-06-16 16:11] LABS: Alanine Aminotransferase 31 U/L (12-78); Albumin Level 3.3 g/dl (3.5-5.0); Albumin/Globulin Ratio 1.4 (1.1-1.8); Alkaline Phosphatase 63 U/L (38-126); Anion Gap 9.7 mEq/L (5-15); Aspartate Amino Transferase 33 U/L (17-59); Carbon Dioxide 29 mmol/L (22.0-30.0); Globulin 2.4 g/dL (1.3-3.2); Glucose 153 mg/dl (74-100); Total Protein,Serum 5.7 g/dl (6.3-8.2)
[2022-06-16 16:20] LABS: NT Pro Brain Natriuretic Pep. 7480 pg/mL (0-450)
[2022-06-16 16:24] LABS: Troponin I 0.04 ng/ml (0.00-0.034)
--- NOTE | 2022-06-16 17:19 | PC.NURSE ---
rt at bedside for abg
[2022-06-16 17:28] LABS: ABG Base Excess 1.6 mmol/L (-2.4-2.3); ABG HCO3 25.5 mmhg (22.0-26.0); ABG Oxygen Saturation 98 % (90-100); ABG PCO2 37.6 mmhg (35.0-45.0); ABG PH 7.45 mmol/L (7.35-7.45); ABG PO2 97.5 mmhg (80-100); ABG TCO2 26.7 mmhg (23-27)
[2022-06-16 17:29] LABS: Allen's Test y; Oxygen ra %; Source rr
--- NOTE | 2022-06-16 17:37 | PC.NURSE ---
[facility] call to [facility] for transfer, they will call back
--- NOTE | 2022-06-16 17:53 | PC.NURSE ---
Dr Lucia speaking to [facility]
[2022-06-16 18:53] LABS: Coronavirus 19, PCR Not Detected (NotDetected); Influenza A, PCR Not Detected (NotDetected); Influenza B, PCR Not Detected (NotDetected)
--- NOTE | 2022-06-16 18:53 | PC.NURSE ---
phlebotomy at bedside for rpt troponin draw
[2022-06-16 19:41] LABS: Troponin I 0.04 ng/ml (0.00-0.034)
--- NOTE | 2022-06-16 20:25 | PC.NURSE ---
Insurance pre-auth faxed
--- NOTE | 2022-06-16 20:44 | PC.NURSE ---
Received fax confirmation for insurance pre-auth
--- NOTE | 2022-06-16 21:42 | PC.NURSE ---
Noticed pt was trying to get out of bed, went to BS and pt kept demanding that he wanted to get up, pt was getting very agitated. Noticed at this time that pt had right facial droop. Called to have Pablo Ramírez come to BS she agreed that he had facial droop and slurred speech. Nurse Angie Martini was called to BS at this time.
--- NOTE | 2022-06-16 21:53 | PC.NURSE ---
Received phone call from [place] advising that pt would be going to 5th floor and number to call report [phone]
--- NOTE | 2022-06-16 22:16 | PC.NURSE ---
report called to Addy SARKAR
== END 2022-06-16 22:43 | disposition short-term general hospital (02) ==
PROVIDERS: Emergency Provider Emergency Medicine; PCP Family Medicine
DX: I50.9 Heart failure, unspecified (principal); Z90.81 Acquired absence of spleen; Z95.1 Presence of aortocoronary bypass graft; Z87.891 Personal history of nicotine dependence
CPT/HCPCS: 36415; 71045; 80053; 82803; 83880; 84484; 85025; 93005; 96374; 99285; C9803; U0003; U0005